=== PATIENT | female | born 1940 | race Caucasian/White ===

== ENCOUNTER 2022-08-23 13:08 | Emergency (ER) | payer MEDICARE, OTHER, SELFPAY ==
[2022-08-23 13:11] VITALS: BP 156/70; PULSE 61; RESP 22; TEMP 36.4; O2SAT 99; BMI 28.3
--- NOTE | 2022-08-23 13:16 | ECG_ITS ---
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 Measurements Intervals [place] Rate: 62 P: 78 ND: 160 QRS: 9 QRSD: 80 T: 47 QT: 402 QTc: 410 Interpretive Statements SINUS RHYTHM POSSIBLE SEPTAL MYOCARDIAL INFARCTION , PROBABLY OLD [30 ms Q WAVE IN V1/V2] No previous ECG available for comparison Electronically Signed On 08-23-2022 22:04:23 PATIENT CARE PROVIDER by Nate Mays M.D. [email or web address] Networkparkwood [email or web address]/store/OM/[id number]
--- NOTE | 2022-08-23 13:18 | ED_ITS ---
HPI - Chest Pain General: Chief Complaint: Chest Pain Stated Complaint: CP Time Seen by Provider: 08/23/22 13:09 History of Present Illness: Ms. Camacho is a 81-year-old lady with history of hypertension and hyperlipidemia presenting to the emergency department for episode of chest discomfort. She reports being at her baseline health and was eating when she got a sharp pain just under her substernal region with radiation through the back. Intensity symptoms when present was moderate. She noted generalized malaise and perhaps nausea with it however symptoms resolved with nitro x2. Reports 1 episode perhaps 1 year ago however denies frequent episodes. No other specific changes in health, exacerbating, or alleviating factors identified. Onset (ago): minute(s) Timing of current episode: now resolved Prior episodes: Yes Onset: during rest Pain location: substernal Pain radiation: back Severity: moderate Quality: aching Relieving factors: nitroglycerin Exacerbating factors: nothing Associated symptoms: Reports nausea and other Review of Systems General: Reports: 10 or more systems reviewed and unremarkable except in HPI and below GI: Reports: nausea PFSH ED PFSH: Medical History (Updated 08/31/22 @ 00:00 by NIKA Davis) Dementia Hyperlipidemia Hypertension Surgical History (Updated 08/23/22 @ 13:49 by Earl Medrano MD) No significant past surgical history Physical Exam Const: COMMON NORMALS: alert GENERAL APPEARANCE: cooperative and well developed HENMT: COMMON NORMALS: normocephalic and atraumatic HEAD & SCALP: normocephalic and atraumatic Eye: COMMON NORMALS: conjunctivae normal CONJUNCTIVA: Yes conjunctivae n ormal SCLERA: sclerae normal Neck/C-Spine: COMMON NORMALS: supple GENERAL: Yes trachea midline Resp: COMMON NORMALS: clear to auscultation bilaterally EFFORT & INSPECTION: Yes able to speak in complete sentences AUSCULTATION: clear to auscultation bilaterally Cardio: COMMON NORMALS: regular rate and regular rhythm RATE: regular rate RHYTHM: regular rhythm GI: COMMON NORMALS: Soft to palpation PALPATION: Yes Soft to palpation, No Tenderness to palpation present (GI) (Epigastric), No Guarding due to palpation present (GI) and No Rigid due to palpation PERCUSSION: normal to percussion Extremity: GENERAL: Yes normal exam except as noted and No edema Neuro: COMMON NORMALS: moves all extremities SENSORIUM/ORIENTATION: Yes alert and No Orientation impaired Psych: COMMON NORMALS: mental status grossly normal and Normal thought process present THOUGHT PROCESS: Normal thought process present Course Vital Signs: Vital signs: Vital Signs Temperature 97.5 F L 08/23/22 13:11 Pulse Rate 74 08/23/22 17:36 Respiratory Rate 18 08/23/22 17:36 Blood Pressure 132/66 08/23/22 17:36 Pulse Oximetry 99 08/23/22 17:36 Oxygen Delivery Me thod 08/23/22 13:11 MDM - Chest Pain Medical Decision Making 81-year-old lady presenting with sharp substernal chest pain with radiation to the back and improvement with nitroglycerin. Exam as above. Patient is nontoxic EKG with sinus rhythm, normal axis and intervals, no STEMI. Similar on repeat Labs with no significant leukocytosis, no alteration in hemoglobin or platelet count. Metabolic panel without significant electrolyte derangement. Minimal elevation in AST and lipase is elevated. Negative range 2-hour delta troponin Chest x-ray with left lung haziness, no lobar consolidation or pneumothorax. CT demonstrates distal esophageal and gastroesophageal thickening and small fluid consistent with reflux in the esophagus. The gallbladder has been removed and no comment on biliary ductal dilation however clinically patient is not tender in the right upper quadrant or epigastric region. Patient treated with aspirin and symptoms are improved. The exact etiology of patient's symptoms is unclear may be related to esophagiti s or pancreatitis though patient clinically does not meet criteria for pancreatitis. I discussed other possible etiologies. Patient wishes for outpatient management The results of ED evaluation were discussed with the patient including possible disposition options. I discussed risk stratification by heart score and estimated risk of major adverse cardiac events. The patient wishes to proceed with outpatient management. I discussed prescriptions and/or symptomatic cares (if applicable) including appropriate and responsible use, followup plan, and return precautions. The patient verbalized understanding and felt safe for discharge. Medical Records I reviewed the patient's medical records. Lab Data I reviewed the patient's lab results. 08/23/22 13:38 08/23/22 13:38 Radiology Impressions Chest X-Ray 08/23/22 13:34 IMPRESSION: There are hazy opacities at the left lung base. Differential includes atelectasis, scar tissue, and or pneumonia. Abdomen/Pelvis CT 08/23/22 14:29 IMPRESSION: 1. There is mucosal thickening of the distal esophagus and gastroesophageal junction. Differential includes nonspecific esophagitis/gastritis. Follow-up to exclude neoplasm as clinically warranted. 2. Small amount of fluid in the distal esophagus consistent with difficulty swallowing and/or reflux. Small hiatal hernia. COMMENTS: Consistent with the [employer]'s Incidental Findings Committee white paper (J Am Lucrecia Radiol 2018): Any incidental renal lesion less than 1 cm or classified as too small to characterize, or any incidental cystic renal lesion characterized as simple-appearing, is likely benign. No follow-up imaging is recommended for these lesions per consensus recommendations based on imaging criteria. Laboratory Results WBC 6.1 10^3/uL (4.0-10.0) 08/23/22 13:38 RBC 4.05 10^6/uL (4.1-5.3) L 08/23/22 13:38 Hgb 12.6 g/dL (11.5-15.3) 08/23/22 13:38 Hct 39.1 % (37.0-47.0) 08/23/22 13:38 MCV 96.5 fl (81-99) 08/23/22 13:38 MCH 31.1 pg (28.0-34.0) 08/23/22 13:38 MCHC 32.2 g/dL (30.0-36.0) 08/23/22 13:38 RDW 13.2 % (12.1-15.1) 08/23/22 13:38 Plt Count 158 10^3/cmm (130-400) 08/23/22 13:38 MPV 11.6 fL (7.4-10.4) H 08/23/22 13:38 Neut % (Auto) 61.6 % 08/23/22 13:38 Lymph % (Auto) 17.3 % 08/23/22 13:38 [place] % (Auto) 5.9 % 08/23/22 13:38 Eos % (Auto) 13.8 % 08/23/22 13:38 Baso % (Auto) 1.1 % 08/23/22 13:38 Neut # (Auto) 3.78 10^3/uL (1.8-7.7) 08/23/22 13:38 Lymph # (Auto) 1.1 10^3/uL (0.8-4.8) 08/23/22 13:38 [place] # (Auto) 0.4 10^3/uL (0.2-0.9) 08/23/22 13:38 Eos # (Auto) 0.9 10^3/uL (0.0-0.8) H 08/23/22 13:38 Baso # (Auto) 0.1 10^3/uL (0.0-0.1) 08/23/22 13:38 Nucleated RBC % (auto) 0 % 08/23/22 13:38 Nucleated RBCs # 0.0 /100WBC 08/23/22 13:38 Sodium 137 mmol/L (136-145) 08/23/22 13:38 Potassium 4.0 mmol/L (3.5-5.1) 08/23/22 13:38 Chloride 102 mmol/L (98-107) 08/23/22 13:38 Carbon Dioxide 25 mmol/L (22-29) 08/23/22 13:38 Anion Gap 14.0 (5-19) 08/23/22 13:38 BUN 11 mg/dL (8-23) 08/23/22 13:38 Creatinine 0.9 mg/dL (0.5-0.9) 08/23/22 13:38 GFR Calculation Not Reportable 08/23/22 13:38 Glucose 113 mg/dL (65-115) 08/23/22 13:38 Calculated Osmolality 284 mOsm/kg (285-295) L 08/23/22 13:38 Calcium 9.7 mg/dL (8.5-10.5) 08/23/22 13:38 Total Bilirubin 0.2 mg/dL (0.15-1.2) 08/23/22 13:38 AST 54 U/L (0-32) H 08/23/22 13:38 ALT 26 U/L (0-33) 08/23/22 13:38 Alkaline Phosphatase 75 U/L (35-105) 08/23/22 13:38 Troponin T Baseline 15 ng/L (0-10) H 08/23/22 13:38 Troponin T 120 Minute 13.73 ng/L (0-10) H 08/23/22 15:53 Delta Troponin T -1.27 ABS# (0-10) L 08/23/22 15:53 NT-Pro-B Natriuret Pep 380 pg/mL (0-450) 08/23/22 13:38 Total Protein 6.2 g/dL (6.6-8.7) L 08/23/22 13:38 Albumin 4.1 g/dL (3.5-5.2) 08/23/22 13:38 Globulin 2.1 g/dL (1.3-4.6) 08/23/22 13:38 Lipase 2602 U/L (13-60) H 08/23/22 13:38 Discharge Plan Discharge Patient Disposition: Home Clinical Impression: Chest pain, Esophagitis, Gastritis, Elevated lipase Condition: Stable Prescriptions: New Protonix 40 mg tablet,delayed release (DR/EC) 40 mg PO Q12H 14 Days Qty: 28 0RF sucralfate 1 gram tablet 1 g PO TID 14 Days Qty: 42 0RF ondansetron 4 mg tablet,disintegrating 4 mg PO Q8H PRN (Reason: nausea and vomiting) Qty: 15 0RF oxycodone 5 mg tablet 5 mg PO Q4H PRN (Reason: pain) Qty: 10 0RF No Action buspirone 5 mg tablet 5 mg PO BEDTIME Tylenol 325 mg Tablet 325 mg PO BID donepezil 5 mg tablet 5 mg PO QAM Miralax 17 gram Powder In Packet 17 g PO BEDTIME atenolol 25 mg tablet 25 mg PO QAM clobetasol 0.05 % cream 1 applic TOPICAL BID PRN (Reason: unknown) Aspir-81 81 mg Tablet,Delayed Release (Dr/Ec) 81 mg PO BEDTIME levothyroxine 50 mcg tablet 50 mcg PO QAM ezetimibe 10 mg tablet 10 mg PO BEDTIME Metamucil (sugar) Powder 2 tsp PO QAM Mxkt-Zaun-Dcseca Oil [phone] mg Capsule 1 cap PO DAILY Centrum Silver Women 8 mg iron-400 mcg-300 mcg Tablet 1 tab PO DAILY Discharge Orders: Discharge ED (Routine); Ordered 08/23/22 Ordered By: Earl Medrano Discharge Diet: Advance as tolerated and Clear Liquid Discharge Activity: Increase activity as tolerated Patient Instructions: Chest Pain (ED), Gastritis (ED), Pancreatitis (ED), Diet for Stomach Ulcers and Gastritis (ED), Opioid Safety Activity Restrictions/Additional Instructions: Thank you for visiting the emergency department. You were seen and evaluated for episode of chest pain. The most likely cause of your symptoms is related to esophagitis/gastritis and possibly pancreatitis. We are pleased that your pain is improved. I will prescribe medication for treatment. Please follow-up with your primary care provider. Return to the emergency department for anything that you are concerned about and field needs emergency department evaluation. Coding Level of Care Code ED Sprayer Automatic Spray Machine for Vitaliy Chi
--- NOTE | 2022-08-23 13:34 | XRR_ITS ---
PROCEDURE INFORMATION: Exam: XR Chest Exam date and time: 08/23/2022 1:54 PM Age: 81 years old Clinical indication: Pain; Other: Generalized cp TECHNIQUE: Imaging protocol: Radiologic exam of the chest. Views: 1 view. COMPARISON: No relevant prior studies available. FINDINGS: Lungs: Hazy opacities are present at the left lung base. Pleural spaces: Costophrenic angles are not well seen and small pleural effusions cannot be excluded. Heart/Mediastinum: Unremarkable. No cardiomegaly. Vasculature: There is calcified plaque in the aortic knob. Bones/joints: Unremarkable. XR/XR chest 1V portable [id number] IMPRESSION: There are hazy opacities at the left lung base. Differential includes atelectasis, scar tissue, and or pneumonia.
[2022-08-23] MEDS: aspirin 81 mg Chew Tablet 324 MG PO (13:44)
[2022-08-23 13:45] LABS: Basophils # 0.1 10^3/uL (0.0-0.1); Basophils % 1.1 %; Eosinophils # 0.9 10^3/uL (0.0-0.8); Eosinophils % 13.8 %; Hematocrit 39.1 % (37.0-47.0); Hemoglobin 12.6 g/dL (11.5-15.3); Lymphocytes # 1.1 10^3/uL (0.8-4.8); Lymphocytes % 17.3 %; Mean Corpuscular HGB Conc 32.2 g/dL (30.0-36.0); Mean Corpuscular Hemoglobin 31.1 pg (28.0-34.0); Mean Corpuscular Volume 96.5 fl (81-99); Mean Platelet Volume 11.6 fL (7.4-10.4); Monocytes # 0.4 10^3/uL (0.2-0.9); Monocytes % 5.9 %; Neutrophils # 3.78 10^3/uL (1.8-7.7); Neutrophils % 61.6 %; Nucleated Red Blood Cells % 0 %; Platelet Count 158 10^3/cmm (130-400); Red Blood Count 4.05 10^6/uL (4.1-5.3); Red Cell Distribution Width 13.2 % (12.1-15.1); White Blood Count 6.1 10^3/uL (4.0-10.0)
[2022-08-23 14:13] LABS: Troponin(5th) Baseline 15 ng/L (0-10)
[2022-08-23 14:18] LABS: Alanine Aminotransferase 26 U/L (0-33); Albumin Level 4.1 g/dL (3.5-5.2); Alkaline Phosphatase 75 U/L (35-105); Aspartate Amino Transferase 54 U/L (0-32); Blood Urea Nitrogen 11 mg/dL (8-23); Calcium 9.7 mg/dL (8.5-10.5); Carbon Dioxide 25 mmol/L (22-29); Chloride 102 mmol/L (98-107); Globulin 2.1 g/dL (1.3-4.6); Glucose 113 mg/dL (65-115); NT Pro B Type Natriuretic Pept 380 pg/mL (0-450); Osmolality Calculated 284 mOsm/kg (285-295); Sodium 137 mmol/L (136-145); Total Bilirubin 0.2 mg/dL (0.15-1.2); Total Protein 6.2 g/dL (6.6-8.7)
[2022-08-23 14:28] LABS: Lipase 2602 U/L (13-60)
--- NOTE | 2022-08-23 14:29 | CTR_ITS ---
PROCEDURE INFORMATION: Exam: CT Abdomen And Pelvis With Contrast Exam date and time: 08/23/2022 2:42 PM Age: 81 years old Clinical indication: Abdominal pain; Epigastric; Prior surgery; Surgery type: Gb; Additional info: Chest pain, elevated lipase TECHNIQUE: Imaging protocol: Computed tomography of the abdomen and pelvis with contrast. Radiation optimization: All CT scans at this facility use at least one of these dose optimization techniques: automated exposure control; mA and/or kV adjustment per patient size (includes targeted exams where dose is matched to clinical indication); or iterative reconstruction. Contrast material: OMNI 350; Contrast volume: 100 ml; Contrast route: INTRAVENOUS (IV); Other protocol: This patient has received 0 known CTs and 0 known cardiac nuclear medicine studies in the 12 months prior to the current study. COMPARISON: CR (CHEST, ) 08/23/2022 1:54 PM RADIATION DOSE METRICS: Total DLP (mGy-cm): 599.54 FINDINGS: Mediastinal space: There is mucosal thickening of the distal esophagus and gastroesophageal junction. There is a small amount fluid in the distal esophagus. Diaphragm: Small hiatal hernia. Liver: Incidental splenic and hepatic calcified granulomata. Gallbladder and bile ducts: The gallbladder has been removed. Pancreas: Normal. No ductal dilation. Spleen: Normal. No splenomegaly. Adrenal glands: Normal. No mass. Kidneys and ureters: Three 9 cm cyst in the left kidney is benign features. Follow-up is not necessary. Stomach and bowel: There is diverticulosis of the colon without evidence of diverticulitis. Appendix: A normal appendix is identified. Intraperitoneal space: Unremarkable. No free air. No significant fluid collection. Vasculature: Unremarkable. No abdominal aortic aneurysm. Lymph nodes: Unremarkable. No enlarged lymph nodes. Urinary bladder: Unremarkable as visualized. Reproductive: Unremarkable as visualized. Bones/joints: There are degenerative changes in the visualized spine. Grade 1 degenerative retrolisthesis of L2 on L3, L3 on L4, and L4 on L5. Multilevel lumbar broad-based disc osteophyte complexes contribute to bilateral neural foraminal narrowing. Mild lateral curvature of the lower thoracic/upper lumbar spine with the convexity to the left. Soft tissues: Unremarkable. CT/CT abdomen pelvis w con* [id number] IMPRESSION: 1. There is mucosal thickening of the distal esophagus and gastroesophageal junction. Differential includes nonspecific esophagitis/gastritis. Follow-up to exclude neoplasm as clinically warranted. 2. Small amount of fluid in the distal esophagus consistent with difficulty swallowing and/or reflux. Small hiatal hernia. COMMENTS: Consistent with the [place] [employer]'s Incidental Findings Committee white paper (J Am Lucrecia Radiol 2018): Any incidental renal lesion less than 1 cm or classified as too small to characterize, or any incidental cystic renal lesion characterized as simple-appearing, is likely benign. No follow-up imaging is recommended for these lesions per consensus recommendations based on imaging criteria.
[2022-08-23] MEDS: iohexol 350 mg/mL 500 mL Btl (per mL) IV (14:47)
--- NOTE | 2022-08-23 15:46 | ECG_ITS ---
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 Measurements Intervals [place] Rate: 66 P: 74 NV: 172 QRS: -2 QRSD: 89 T: 42 QT: 399 QTc: 418 Interpretive Statements SINUS RHYTHM POSSIBLE RIGHT VENTRICULAR CONDUCTION DELAY [RSR (QR) IN V1/V2] PROBABLE SEPTAL MYOCARDIAL INFARCTION , PROBABLY OLD [35 ms Q WAVE IN V1/V2] Compared to ECG 08/23/2022 13:19:57 No significant changes Electronically Signed On 08-23-2022 22:21:11 NET MANAGER by Nate Mays M.D. [email or web address].[id number]
[2022-08-23 16:08] VITALS: BP 122/66; RESP 18; O2SAT 96
[2022-08-23 16:27] LABS: Troponin 5 2HR 13.73 ng/L (0-10)
[2022-08-23 16:29] LABS: Troponin 5 2HR Delta -1.27 ABS# (0-10)
[2022-08-23 17:36] VITALS: BP 132/66; PULSE 74; RESP 18; O2SAT 99
== END 2022-08-23 17:37 | disposition home or self-care (01) ==
PROVIDERS: Emergency Provider Emergency Medicine
DX: R07.9 Chest pain, unspecified (principal); K20.90 Esophagitis, unspecified without bleeding; K29.70 Gastritis, unspecified, without bleeding; R74.8 Abnormal levels of other serum enzymes; Z79.82 Long term (current) use of aspirin; F03.90 Unspecified dementia, unspecified severity, without behavioral disturbance, psychotic disturbance, mood disturbance, and anxiety; E78.5 Hyperlipidemia, unspecified; I10 Essential (primary) hypertension
CPT/HCPCS: 36415; 71045; 74177; 80053; 83690; 83880; 84484; 85025; 93005; 99285; Q9967

== ENCOUNTER 2023-03-24 17:34 | Inpatient (IN) | payer MEDICARE, OTHER, SELFPAY ==
[2023-03-24 17:42] VITALS: BP 153/84; PULSE 61; RESP 22; TEMP 36.4; O2SAT 98; BMI 30.1
[2023-03-24 18:13] VITALS: O2SAT 98
--- NOTE | 2023-03-24 18:33 | XRR_ITS ---
PROCEDURE INFORMATION: Exam: XR Pelvis Exam date and time: 03/24/2023 6:39 PM Age: 82 years old Clinical indication: Injury or trauma; Fall; Additional info: Left hip pain/fall TECHNIQUE: Imaging protocol: Radiologic exam of the pelvis. Views: 1 or 2 view. COMPARISON: CT abdomen pelvis w con* [id number] 08/23/2022 2:42 PM FINDINGS: Bones/joints: Transverse lucency in the left pubic symphysis. The bones otherwise appear intact. Leftward lumbar curvature. Soft tissues: Unremarkable. XR/XR pelvis 1-2V* [id number] IMPRESSION: Transverse lucency in the left pubic symphysis could represent a fracture.
--- NOTE | 2023-03-24 18:33 | XRR_ITS ---
PROCEDURE INFORMATION: Exam: XR Left Elbow Exam date and time: 03/24/2023 6:39 PM Age: 82 years old Clinical indication: Pain; Elbow; Left; Additional info: Trauma, fell on concrete, lt elbow pain, laceration TECHNIQUE: Imaging protocol: Radiologic exam of the left elbow. Views: 3 or more views. COMPARISON: No relevant prior studies available. FINDINGS: Bones/joints: The bones are intact and in normal position. No visible fracture. No visible elbow effusion. Soft tissues: Soft tissue swelling in the posterior elbow and proximal forearm. Posterior bandage and/or ice pack in place. XR/XR elbow LT min 3V* [id number] IMPRESSION: No fracture visualized.
--- NOTE | 2023-03-24 18:33 | XRR_ITS ---
PROCEDURE INFORMATION: Exam: XR Left Femur Exam date and time: 03/24/2023 6:39 PM Age: 82 years old Clinical indication: Pain; Thigh; Left; Additional info: Trauma, fell on concrete, left femur pain TECHNIQUE: Imaging protocol: Radiologic exam of the left femur. Views: 2 views. COMPARISON: CT abdomen pelvis w con* [id number] 08/23/2022 2:42 PM FINDINGS: Bones/joints: The bones are intact. No fracture. No knee effusion. Joint space narrowing and degenerative changes of the medial knee compartment. Soft tissues: Unremarkable. Arterial calcifications. XR/XR femur LT min 2V* [id number] IMPRESSION: No acute findings.
--- NOTE | 2023-03-24 18:35 | W.ED.FALL ---
HPI - Fall General: Chief Complaint: Fall Stated Complaint: fall, left arm injury Time Seen by Provider: 03/24/23 18:01 History of Present Illness: 82-year-old female presents to the emergency department complaining of mechanical fall. She has dementia and her and daughter are here as independent historians. She was coming out onto their driveway through the garage. A neighbor had just arrived. She had forgotten or else did not account for the approximately 3 inch step down going from the slab of concrete in the garage to the driveway. She fell onto her left side. She has a contusion on the left knee, pain in the left hip, and a large laceration to the left elbow. She can flex and extend her elbow but it causes her some pain. She says she feels like she cannot raise her left leg due to a vague discomfort somewhere around the left hip section. She denies hitting her head. No neck pain. It was a witnessed fall. Review of Systems General: Reports: 10 or more systems reviewed and unremarkable except in HPI and below PFSH ED PFSH: Medical History (Updated 03/24/23 @ 20:48 by Amrit Rich MD) Dementia Hyperlipidemia Hypertension Surgical History (Updated 08/23/22 @ 13:49 by Earl Medrano MD) No significant past surgical history Physical Exam Const: COMMON NORMALS: alert and well nourished EXAM LIMITATIONS: no altered mental status HENMT: COMMON NORMALS: normocephalic, atraumatic and external ears normal HEAD & SCALP: normocephalic and atraumatic EXTERNAL EAR: Yes external ears normal MOUTH: no muffled voice Eye: COMMON NORMALS: EOMs intact bilaterally, conjunctivae normal and no scleral icterus CONJUNCTIVA: Yes conjunctivae normal Neck/C-Spine: COMMON NORMALS: no JVD GENERAL: Yes normal visual inspection and Yes trachea midline Chest: OTHER: Nontender chest wall, nontender clavicles, no crepitus or deformities Resp: COMMON NORMALS: normal respiratory effort, No use of accessory muscles and clear to auscultation bilaterally AUSCULTATION: clear to auscultation bilaterally Cardio: COMMON NORMALS: no JVD, regular rate and regular rhythm RATE: regular rate RHYTHM: regular rhythm GI: COMMON NORMALS: Soft to palpation and non-tender PALPATION: Yes Soft to palpation and No Guarding due to palpation present (GI) Back/Pelvis: OTHER: Cervical, thoracic, lumbar spine all nontender. Normal range of motion. Extremity: NARRATIVE EXTREMITY EXAM: All of the extremities were examined. There is a contusion on the left knee. Otherwise no's skin changes in the left lower extremity. There is pain with active or passive range of motion of the left lower extremity. Pain is poorly localized but somewhere in the left hip. Pelvis is stable to AP pressure. Right lower extremity examination unremarkable Right upper extremity examination unremarkable. Left upper extremity examination reveals laceration and skin tear of the left elbow. She has some pain with range of motion but believes it is due to the lacerations. No pain with range of motion of the shoulder. Mild pain in the left wrist but no limitation in range of motion and no guarding. No bony tenderness throughout the hand or wrist. Humerus is nontender. Neuro: COMMON NORMALS: moves all extremities, no focal motor deficits and no sensory deficits noted SENSORIUM/ORIENTATION: Yes alert SPEECH: speech normal Psych: COMMON NORMALS: Normal thought process present, cooperative, normal affect and speech normal SPEECH: Yes normal speech THOUGHT PROCESS: Normal thought process present Procedures Laceration Laceration 1: Site: upper extremity (Left elbow) Side (If applicable): left Size (cm): 5 Description: linear Depth: simple, single layer Local Anesthetic: lidocaine 1% and with epi Amount of anesthesia used (mL): 10 Pre-repair: wound explored, irrigated extensively and deep structures intact Skin layer closed with: nylon Size (cm): 3-0 Number of sutures: 9 Technique: running Course Vital Signs: Vital signs: Vital Signs Temperature 97.5 F L 03/24/23 17:42 Pulse Rate 61 03/24/23 17:42 Respiratory Rate 18 03/24/23 19:11 Blood Pressure 153/84 03/24/23 17:42 Pulse Oximetry 98 03/24/23 18:13 Oxygen Delivery Me thod Room Air 03/24/23 18:13 MDM - Fall Medical Decision Making 1. Laceration and skin tear to left elbow. Tetanus needs updated. X-rays are pending. 2. Left hip pain after fall. X-ray of the pelvis and femur are pending. Update The patient's left elbow x-rays were reviewed. There is no true 90 degree elbow film. However, I do not see any fractures. I also reviewed the patient's femur and pelvis x-rays. There is a superior pubic ramus fracture near the pubic symphysis on the left side. No other fractures visualized I repaired the patient's left elbow skin tear as well as her laceration. We attempted ambulation with a walker after she was given hydrocodone. Patient was only able to make it a few steps and needed help and had significant pain and had to return to bed. Family does not feel they will be able to care for her appropriately at home, will reach out for admission to the hospital. She will probably need care home/rehabilitation placement Lab Data 03/24/23 20:57 03/24/23 20:57 Radiology Impressions Elbow X-Ray 03/24/23 18:33 IMPRESSION: No fracture visualized. Femur X-Ray 03/24/23 18:33 IMPRESSION: No acute findings. Pelvis X-Ray 03/24/23 18:33 IMPRESSION: Transverse lucency in the left pubic symphysis could represent a fracture. Laboratory Results WBC 13.61 10^3/uL (3.29-11.43) H 03/24/23 20:57 RBC 3.93 10^6/uL (3.85-5.65) 03/24/23 20:57 Hgb 12.30 g/dL (11.27-16.99) 03/24/23 20:57 Hct 38.2 % (36-47) 03/24/23 20:57 MCV 97.2 fl (85-98) 03/24/23 20:57 MCH 31.3 pg (27-33) 03/24/23 20:57 MCHC 32.2 g/dL (30-55) 03/24/23 20:57 RDW 13.1 % (12.1-15.1) 03/24/23 20:57 Plt Count 152 10^3/cmm (157-399) L 03/24/23 20:57 MPV 11.7 fL (7.4-10.4) H 03/24/23 20:57 Neut % (Auto) 82.3 % 03/24/23 20:57 Lymph % (Auto) 8.6 % 03/24/23 20:57 [place] % (Auto) 5.9 % 03/24/23 20:57 Eos % (Auto) 1.5 % 03/24/23 20:57 Baso % (Auto) 0.4 % 03/24/23 20:57 Neut # (Auto) 11.20 10^3/uL (1.8-7.7) H 03/24/23 20:57 Lymph # (Auto) 1.2 10^3/uL (0.8-4.8) 03/24/23 20:57 [place] # (Auto) 0.8 10^3/uL (0.2-0.9) 03/24/23 20:57 Eos # (Auto) 0.2 10^3/uL (0.0-0.8) 03/24/23 20:57 Baso # (Auto) 0.1 10^3/uL (0.0-0.1) 03/24/23 20:57 Nucleated RBC % (auto) 0 % 03/24/23 20:57 Nucleated RBCs # 0.0 /100WBC 03/24/23 20:57 All radiology interpretation(s) finalized by discharge ED provider radiology interpretation(s): See MDM Discharge Plan Discharge Patient Disposition: Placed in Observation Clinical Impression: Fracture of left superior pubic ramus, Dementia, Laceration of elbow, left, Contusion of knee, left, Gait disturbance Coding Level of Care Code ED Eye Glass Frame Polisher for Vitaliy Chi
[2023-03-24] MEDS: ondansetron 4 MG Tablet PO (19:09)
[2023-03-24] MEDS: tetanus-dipt-pertussis 0.5 mL SDV IM (19:10)
[2023-03-24] MEDS: HYDROcodone-acetaminophen 5-325 mg Tablet 1 TAB PO ×2 (19:10→22:52)
[2023-03-24 19:11] VITALS: RESP 18
[2023-03-24] MEDS: lidocaine-epi 1% 20 mL INJ INJECTION (20:39)
[2023-03-24 21:17] LABS: Basophils # 0.1 10^3/uL (0.0-0.1); Basophils % 0.4 %; Eosinophils # 0.2 10^3/uL (0.0-0.8); Eosinophils % 1.5 %; Hematocrit 38.2 % (36-47); Lymphocytes # 1.2 10^3/uL (0.8-4.8); Lymphocytes % 8.6 %; Mean Corpuscular HGB Conc 32.2 g/dL (30-55); Mean Corpuscular Hemoglobin 31.3 pg (27-33); Mean Corpuscular Volume 97.2 fl (85-98); Mean Platelet Volume 11.7 fL (7.4-10.4); Monocytes # 0.8 10^3/uL (0.2-0.9); Monocytes % 5.9 %; Neutrophils % 82.3 %; Nucleated Red Blood Cells % 0 %; Platelet Count 152 10^3/cmm (157-399); Red Blood Count 3.93 10^6/uL (3.85-5.65); Red Cell Distribution Width 13.1 % (12.1-15.1); White Blood Count 13.61 10^3/uL (3.29-11.43)
[2023-03-24 21:26] LABS: Alanine Aminotransferase 23 U/L (0-33); Albumin Level 4.3 g/dL (3.5-5.2); Alkaline Phosphatase 75 U/L (35-105); Anion Gap 15.3 (5-19); Aspartate Amino Transferase 45 U/L (0-32); Blood Urea Nitrogen 19 mg/dL (8-23); Calcium 9.3 mg/dL (8.5-10.5); Carbon Dioxide 23 mmol/L (22-29); Chloride 104 mmol/L (98-107); Globulin 2.5 g/dL (1.3-4.6); Glucose 139 mg/dL (65-115); Osmolality Calculated 291 mOsm/kg (285-295); Potassium 4.3 mmol/L (3.5-5.1); Sodium 138 mmol/L (136-145); Total Bilirubin 0.3 mg/dL (0.15-1.2); Total Protein 6.8 g/dL (6.6-8.7)
[2023-03-24 22:46] VITALS: BP 120/66; PULSE 58; PULSE 64; RESP 15; TEMP 36.8; O2SAT 97
--- NOTE | 2023-03-24 22:52 | PM.HP ---
Providers/Chief Complaint Admitting Physician: Cecilia Ness MD Primary Care Provider: JOVITA LOBO Chief Complaint: fall, left arm injury History of Present Illness Isabelle Camacho is a 82 year old female with a history of dementia sustained a mechanical fall at home earlier today. Per family, patient was going out of her house to meet with one of the neighbors when she missed a step and fell onto hard ground. She is having difficulty walking ever since then. She suffered a laceration over her left arm. She is currently complaining of pain over the left hand. No history of chest pain dyspnea palpitations syncope. Patient has not been sick recently, in her baseline state of health. Review of Systems General: Reports: 10 or more systems reviewed and unremarkable except in HPI and below Const: Denies: fever(s), chills or body aches Eyes: Denies: change in vision, blurry vision or photophobia ENMT: Reports: hoarseness; Denies: throat pain, enlarged tonsils, odynophagia or nasal congestion Card: Denies: chest pain, palpitations, irregular heart rhythm, edema, swelling of feet/ankles, lightheadedness, pre-syncope, dyspnea on exertion or orthopnea Resp: Denies: dyspnea, productive cough, non-productive cough, wheezing, stridor, pain on inspiration, change in phlegm color, hemoptysis or chest congestion GI: Denies: abdominal pain, nausea, vomiting, hematemesis, coffee ground emesis, dysphagia, heartburn, diarrhea, constipation, GI cramping, change in stool character, hematochezia or melena : Denies: flank pain, difficulty voiding, dysuria, urinary frequency, urinary urgency, urinary hesitancy or hematuria Musc: Denies: neck pain, back pain, extremity pain, joint swelling, joint warmth or deformity Neuro: Denies: headache(s), numbness in extremities, weakness in extremities, sensory changes, difficulty walking, frequent falls, dizziness, vertigo, behavioral changes, Slurred speech present or seizure-like activity Psych: Denies: anxiety, depression, suicidal ideation or homicidal ideation Endo: Denies: polyuria, polydipsia, tired all the time, cold intolerance or hot flashes Thierry/Lymph: Denies: easy bruising or easy bleeding Medications/Allergies Home Medications Medication Instructions Recorded Confirmed Last Taken Type aspirin 81 mg tablet,delayed 81 mg PO BEDTIME 08/23/22 03/24/23 03/23/23 20:00 History release buspirone 5 mg tablet 5 mg PO BEDTIME PRN Anxiety 08/23/22 03/24/23 03/23/23 20:00 History ezetimibe 10 mg tablet 10 mg PO BEDTIME 08/23/22 03/24/23 03/23/23 20:00 History levothyroxine 50 mcg tablet 50 mcg PO QAM 08/23/22 03/24/23 03/24/23 08:00 History polyethylene glycol 3350 17 gram 8 g PO BEDTIME 08/23/22 03/24/23 08/22/22 History oral powder packet (Miralax) psyllium seed (sugar) oral powder 2 tsp PO QAM 08/23/22 03/24/23 Unknown History (Metamucil (sugar) oral powder) donepezil 5 mg tablet 5 mg PO DAILY 03/24/23 03/24/23 03/24/23 08:00 History sulfamethoxazole 800 1 tab PO Q12H 03/24/23 03/24/23 Unknown History mg-trimethoprim 160 mg tablet (Bactrim DS) Allergies Allergy/AdvReac Type Severity Reaction Status Date / Time ciprofloxacin [From Cipro] Allergy Unknown Verified 08/23/22 14:01 PFSH Acute PFSH: Medical History Dementia Hyperlipidemia Hypertension Surgical History No significant past surgical history Vitals/I&O/Wt Last Vital Signs Temp 97.5 F L 03/24/23 17:42 Pulse 61 03/24/23 17:42 Resp 18 03/24/23 19:11 BP 153/84 03/24/23 17:42 Pulse Ox 98 03/24/23 18:13 O2 Del Method Room Air 03/24/23 18:13 Weight last 48 hrs Weight 77.111 kg Physical Exam Narrative: General: No acute distress, AO x2-3 HEENT: PERRLA, pupils bilaterally equal and reactive, pallors not present Chest: Normal vesicular breath sounds, no added sounds, equal good air entry bilaterally CVS: S1-S2 regular, no murmurs, no tachycardia, no gallops, no rubs Abdomen: Soft, nontender, no organomegaly, bowel sounds present Neuro: No focal deficits, no facial deformity, AO x2-3 power 5/5 in all limbs Data 03/25/23 04:04 03/25/23 04:04 Other [facility]: [facility] [address] [place] [address] XRay Report Signed Patient: Isabelle Camacho Unit #: [id number] : 1940 Age/Sex: 82 / F ADM Date: 03/24/23 Loc: ER Room/Bed: Attending Dr: Ordering Provider/Ordering MD: Amrit Rich MD Date of Service: 03/24/23 Procedure(s): XR pelvis 1-2V* [id number] Accession Number(s): [id number] Report Number: [id number] PROCEDURE INFORMATION: Exam: XR Pelvis Exam date and time: 03/24/2023 6:39 PM Age: 82 years old Clinical indication: Injury or trauma; Fall; Additional info: Left hip pain/fall TECHNIQUE: Imaging protocol: Radiologic exam of the pelvis. Views: 1 or 2 view. COMPARISON: CT abdomen pelvis w con* [id number] 08/23/2022 2:42 PM FINDINGS: Bones/joints: Transverse lucency in the left pubic symphysis. The bones otherwise appear intact. Leftward lumbar curvature. Soft tissues: Unremarkable. XR/XR pelvis 1-2V* [id number] IMPRESSION: Transverse lucency in the left pubic symphysis [place] [address] XRay Report Signed Patient: Isabelle Camacho Unit #: [id number] : 1940 Age/Sex: 82 / F ADM Date: 03/24/23 Loc: ER Room/Bed: Attending Dr: Ordering Provider/Ordering MD: Amrit Rich MD Date of Service: 03/24/23 Procedure(s): XR femur LT min 2V* [id number] Accession Number(s): [id number] Report Number: [id number] PROCEDURE INFORMATION: Exam: XR Left Femur Exam date and time: 03/24/2023 6:39 PM Age: 82 years old Clinical indication: Pain; Thigh; Left; Additional info: Trauma, fell on concrete, left femur pain TECHNIQUE: Imaging protocol: Radiologic exam of the left femur. Views: 2 views. COMPARISON: CT abdomen pelvis w con* [id number] 08/23/2022 2:42 PM FINDINGS: Bones/joints: The bones are intact. No fracture. No knee effusion. Joint space narrowing and degenerative changes of the medial knee compartment. Soft tissues: Unremarkable.? Arterial calcifications. XR/XR femur LT min 2V* [id number] IMPRESSION: No acute findings. [address] [address] XRay Report Signed Patient: Isabelle Camacho Unit #: [id number] : 1940 Age/Sex: 82 / F ADM Date: 03/24/23 Loc: ER Room/Bed: Attending Dr: Ordering Provider/Ordering MD: Amrit Rich MD Date of Service: 03/24/23 Procedure(s): XR elbow LT min 3V* 68356 Accession Number(s): [id number] Report Number: [id number] PROCEDURE INFORMATION: Exam: XR Left Elbow Exam date and time: 03/24/2023 6:39 PM Age: 82 years old Clinical indication: Pain; Elbow; Left; Additional info: Trauma, fell on concrete, lt elbow pain, laceration TECHNIQUE: Imaging protocol: Radiologic exam of the left elbow. Views: 3 or more views. COMPARISON: No relevant prior studies available. FINDINGS: Bones/joints: The bones are intact and in normal position. No visible fracture. No visible elbow effusion. Soft tissues: Soft tissue swelling in the posterior elbow and proximal forearm. Posterior bandage and/or ice pack in place. XR/XR elbow LT min 3V* [id number] IMPRESSION: No fracture visualized. A&P Assessment and plan (1) Fracture of left superior pubic ramus: Fracture of the left pubic symphysis after sustaining a mechanical fall at home today. X-ray shows a transverse lucency thought to represent a fracture. We will repeat CT pelvis to better evaluate Patient attempted to walk in the emergency room but was unable to. Could barely take a few steps, family does not feel they will be able to take care of her needs at home given that she is unable to take even a few steps at this time. Orthopedic consult PT OT assessment As needed hydrocodone APAP for pain management (2) Laceration of elbow, left: Sutured in the emergency room. Approximately 8 cm laceration over the left elbow (3) Dementia: Mentation is currently at baseline Continue home medications (4) Contusion of knee, left: no underlying fractures visualized (5) ASHLI (acute kidney injury): ASHLI, creatinine at 1.4, previous baseline at 0.9. Start IV fluids normal saline at 75 cc an hour May be related to Bactrim use as outpatient for recent UTI. I do not have urine cultures available. Given ASHLI, will use ceftriaxone instead empirically, check UA and urine culture May need to obtain recent outpatient cultures in am Attestations Medical Necessity Statement*: Anticipate greater than 2 midnight admission at this point in time, elderly patient with fall and pubic rami fracture, unable to take even few short steps, will need therapy assessments and likely continued rehab, family states unable to care for her needs at home, will need appropriate disposition planning Coding Level of Care Code Acute Code for [facility] Fwd Diagnoses Fracture of left superior pubic ramus S32.512A Laceration of elbow, left S51.012A Dementia F03.90 Contusion of knee, left S80.02XA ASHLI (acute kidney injury) N17.9
[2023-03-24] MEDS: heparin 5,000 unit/mL INJ 1 mL 5000 UNIT SUBCUT (23:28)
[2023-03-24] MEDS: sodium chloride 0.9% 1,000 ML 75 ML IV (23:28)
[2023-03-25] VITALS (9 sets, daily range): BP systolic 97–165; BP diastolic 56–78; PULSE 59–79; RESP 13–16; TEMP 36.4–37; O2SAT 94–100
[2023-03-25 05:10] LABS: Basophils % 0.4 %; Eosinophils # 0.1 10^3/uL (0.0-0.8); Eosinophils % 1.4 %; Hematocrit 34.3 % (36-47); Lymphocytes # 0.6 10^3/uL (0.8-4.8); Lymphocytes % 7.9 %; Mean Corpuscular HGB Conc 31.8 g/dL (30-55); Mean Corpuscular Hemoglobin 31.2 pg (27-33); Mean Corpuscular Volume 98.3 fl (85-98); Monocytes # 0.7 10^3/uL (0.2-0.9); Monocytes % 8.3 %; Neutrophils # 6.49 10^3/uL (1.8-7.7); Neutrophils % 81.2 %; Nucleated Red Blood Cells % 0 %; Platelet Count 134 10^3/cmm (157-399); Red Blood Count 3.49 10^6/uL (3.85-5.65); Red Cell Distribution Width 13.2 % (12.1-15.1); White Blood Count 7.98 10^3/uL (3.29-11.43)
[2023-03-25 05:34] LABS: Alanine Aminotransferase 45 U/L (0-33); Albumin Level 3.8 g/dL (3.5-5.2); Alkaline Phosphatase 76 U/L (35-105); Anion Gap 12.9 (5-19); Aspartate Amino Transferase 90 U/L (0-32); Blood Urea Nitrogen 19 mg/dL (8-23); Calcium 8.8 mg/dL (8.5-10.5); Carbon Dioxide 23 mmol/L (22-29); Chloride 107 mmol/L (98-107); Globulin 2.3 g/dL (1.3-4.6); Glucose 129 mg/dL (65-115); Osmolality Calculated 290 mOsm/kg (285-295); Potassium 4.9 mmol/L (3.5-5.1); Sodium 138 mmol/L (136-145); Total Bilirubin 0.3 mg/dL (0.15-1.2); Total Protein 6.1 g/dL (6.6-8.7)
[2023-03-25 05:37] LABS: Creatinine Clr Calc Pharmacy 36.7651
--- NOTE | 2023-03-25 05:55 | XR_ITS ---
WS: [id number] XR chest 1V portable [id number] REASON FOR EXAM: evaluate for rib fracture FINDINGS: The chest appears unchanged compared to 08/23/2022. Mild tortuosity of the thoracic aorta. Normal heart size. Calcified granulomatous disease in both hemithoraces. Chronic reticular interstitial lung opacities in the left lower lung field. No acute pulmonary parenchymal or pleural abnormality. The bony thorax is intact. No rib fracture identified. IMPRESSION: No acute abnormality. No rib fracture identified.
--- NOTE | 2023-03-25 05:56 | XR_ITS ---
WS: [email or web address] XR lumbar spine 1V port [id number] REASON FOR EXAM: evaluate for fracture FINDINGS: Severe rotatory scoliosis convex left. No significant compression deformity identified however the lateral view is much more sensitive for l umbar compression fracture. Significant changes of degenerative spondylosis. IMPRESSION: Severe rotatory scoliosis and degenerative spondylosis. No acute abnormality identified.
--- NOTE | 2023-03-25 05:59 | CT_ITS ---
WS: [id number] Noncontrast CT pelvis TECHNIQUE: Noncontrast CT pelvis with coronal and sagittal reformatted images. CLINICAL INFORMATION: suspected pubic sympysis fracture on XR COMPARISON: Radiograph 03/24/2023 DLP: 479.[address] scans at [facility] use at least one of these dose optimization techniques: automated e xposure control; mA and/or kV adjustment per patient size (includes targeted exams where dose is matc hed to clinical indication); or iterative reconstruction. FINDINGS: Minimally displaced fracture involving the LEFT pubic symphysis as seen on the prior radiograph. No s ignificant pubic symphysis widening. This extends into the adjacent superior pubic ramus. Normal acet abulum. Femoral heads appear normal. Mild disc osteophyte complex L5-S1 with mild to moderate bilater al foraminal narrowing. Additional tiny nondisplaced fracture with cortical irregularity along the LEFT sacral ala. Recommend correlation for LEFT sacral pain. Sigmoid diverticulosis. Moderate facet arthropathy lower lumbar spine. IMPRESSION: 1. Minimally displaced fracture involving the LEFT superior pubic ramus at the pubic symphysis as seen on the prior radiograph. No significant pubic symphysis widening. 2. Small amount of associated edema along the LEFT pubic ramus and pubic symphysis. 3. Additional tiny nondisplaced fracture with cortical irregularity along the LEFT sacral ala. Recom mend correlation for LEFT sacral pain.
[2023-03-25] MEDS: levothyroxine 50 mcg Tablet PO (06:21)
[2023-03-25] MEDS: cefTRIAXone 1,000 MG in sodium chloride 0.9% (plus) 50 ML 100 MG IV (06:21)
[2023-03-25] MEDS: psyllium powder Pkt 2 PACKET PO (06:38)
[2023-03-25] MEDS: HYDROcodone-acetaminophen 5-325 mg Tablet 1 TAB PO (06:41)
[2023-03-25 06:46] LABS: Add Urine Microscopic? NO; Charge for UA Resulting for Rev
[2023-03-25 07:07] LABS: Creatine Phosphokinase 564 U/L (26-192)
[2023-03-25 07:13] LABS: Bilirubin Urine Neg (Negative); Blood Urine Neg (Negative); Glucose Urine UA Norm (Normal); Ketones Urine Negative (Negative); Leukocyte Esterase Urine Negative (Negative); Nitrate Urine Negative (Negative); Protein Urine Neg (Negative); Urine Appearance Clear (CLEAR); Urine Color Yellow (Yellow); Urobilinogen Urine Norm (Negative); pH Urine 6 (5-7)
[2023-03-25] MEDS: donepezil 5 MG Tablet PO (09:28)
[2023-03-25] MEDS: pantoprazole DR 40 mg Tablet PO (09:28)
--- NOTE | 2023-03-25 10:20 | CT_ITS ---
WS: [id number] CT HEAD TECHNIQUE: Noncontrast CT of the head obtained from the skullbase to the vertex. CLINICAL INFORMATION: fall COMPARISON: None. DLP: 1048.[address] scans at [facility] use at least one of these dose optimization techniques: automated e xposure control; mA and/or kV adjustment per patient size (includes targeted exams where dose is matc hed to clinical indication); or iterative reconstruction. FINDINGS: No evidence of intracranial hemorrhage or mass effect. Ventricular system and basal cisterns are strickland nt. Mild small vessel changes with moderate parenchymal volume loss. Vascular calcification. No extra -axial fluid collections. No evidence of mass or mass effect. Mild mucosal thickening in the paranasal sinuses. Mastoid air cells are well aerated. Normal posterio r nasopharynx. IMPRESSION: 1. No evidence of intracranial hemorrhage or mass effect. 2. No acute intracranial findings.
--- NOTE | 2023-03-25 10:20 | XRR_ITS ---
PROCEDURE INFORMATION: Exam: XR Left Shoulder Exam date and time: 03/25/2023 1:44 PM Age: 82 years old Clinical indication: Injury or trauma; Fall; Blunt trauma (contusions or hematomas); Shoulder; Left; Additional info: Falll, pain TECHNIQUE: Imaging protocol: Radiologic exam of the left shoulder. Views: 1 view. COMPARISON: CR XR chest 1V portable [id number] 03/25/2023 8:31 AM FINDINGS: Bones/joints: Osteopenia. Soft tissues: Normal. XR/XR shoulder LT 1V 85671 IMPRESSION: Unremarkable AP view of the left shoulder which generally is not adequate to exclude an acute bony abnormality or dislocation, especially with this degree of demineralization.
--- NOTE | 2023-03-25 10:20 | XRR_ITS ---
PROCEDURE INFORMATION: Exam: XR Ribs Exam date and time: 03/25/2023 1:48 PM Age: 82 years old Clinical indication: Injury or trauma; Fall; Rib area, left side; Blunt trauma; Additional info: Fall pain TECHNIQUE: Imaging protocol: Radiologic exam of the of the ribs. Views: 3 views. Bilateral ribs. COMPARISON: CR XR chest 1V portable [id number] 03/25/2023 8:31 AM FINDINGS: Bones/joints: Normal. Soft tissues: Normal. XR/XR ribs BI 3V* [id number] IMPRESSION: No acute findings.
--- NOTE | 2023-03-25 10:21 | ECG_ITS ---
[facility] Test Date: 2023-03-25 Pat Name: Isabelle Camacho Department: Room: 252 Gender: Female Family Services Specialist: : 1940 Requested By: Zac Herring Order Number: [id number] Kylee MD: Tino Che M.D. Measurements Intervals [place] Rate: 64 P: 77 NV: 175 QRS: 6 QRSD: 81 T: 47 QT: 400 QTc: 413 Interpretive Statements SINUS RHYTHM MODERATE ST DEPRESSION [0.05+ mV ST DEPRESSION] Compared to ECG 08/23/2022 15:46:25 ST (T wave) deviation now present Myocardial infarct finding no longer present Electronically Signed On 03-25-2023 12:15:00 CDT by Tino Che M.D. [id number]
--- NOTE | 2023-03-25 10:22 | PC.CHAP ---
Pastoral Care Encounter/Spiritual Assessment Type of Contact [] Declined gang pusher visit [] Patient/Family/Request visit [] Outpatient visit [] Follow-up visit [] Physician referral [] Code/Alert [x] Routine visit [] Staff referral [] Actively dying [] Patient sleeping [] Family support [] [] Out of room [] Palliative care [] [x] Receiving care in room [] Pre-surgical visit [] Trauma [] Long length of stay [] ICU visit [] Other: Relational/Emotional Strength [x] Patient feels connected with others/family/visitors/staff [] Distress [] Loneliness/isolation [] Abandonment Spirituality of Patient [x] Person of Nirmala [] Attends Taoist of their Nirmala [x] Believes in Prayer [] Reads Bible or Baptism materials [] There are Spiritual issues to be addressed Regional Sales Manager Interventions [x] Prayer [x] Active listening [x] Non-anxious presence [x] Spiritual/emotional support [] Crisis/trauma care [x] Spiritual counseling [] Bereavement support [] Provided bereavement packet [] Provided Bible/devotional materials [] Provided toy/stuffed animal, coloring book to patient or family member [] Provided Communion [] Anointing/Isabella [] Salvation [x] Completed spiritual assessment [] Other: Impact on Illness or Injury [] Angry [] Fearful [] Anxious [] Often cries [] Exhaustion [] Unable to work [] Unable to attend religion [] Unable to walk/stand [] Unable to read [] Unable to drive [] Unable to eat/drink [] Unable to sleep [] Unable to be with family [] Patient intubated [] Other: Summary senior fell not sure about her her health +1 family has a good attitude well go home Time spent with patient 10 mins
[2023-03-25] MEDS: heparin 5,000 unit/mL INJ 1 mL 5000 UNIT SUBCUT ×2 (10:37→22:55)
[2023-03-25 11:01] LABS: Troponin(5th) Baseline 14 ng/L (0-10)
[2023-03-25 11:22] LABS: Procalcitonin 0.15 ng/mL (0-0.5); Thyroid Stimulating Hormone 1.29 uIU/mL (0.27-4.20)
[2023-03-25 11:40] LABS: C Reactive Protein 18.3 mg/L (0.0-4.9)
--- NOTE | 2023-03-25 11:55 | ECG_ITS ---
[facility] Test Date: 2023-03-25 Pat Name: Isabelle Camacho Department: Room: 252 Gender: Female Desk Top Publisher: : 1940 Requested By: Zac Herring Order Number: [id number] Kylee MD: Tino Che M.D. Measurements Intervals [place] Rate: 56 P: 78 CA: 167 QRS: 10 QRSD: 87 T: 47 QT: 421 QTc: 408 Interpretive Statements SINUS BRADYCARDIA SEPTAL MYOCARDIAL INFARCTION , PROBABLY OLD [40+ ms Q WAVE IN V1/V2] Compared to ECG 03/25/2023 11:00:37 Myocardial infarct finding now present Sinus rhythm no longer present ST (T wave) deviation no longer present Electronically Signed On 03-25-2023 12:14:57 CDT by Tino Che M.D. [id number]
[2023-03-25 13:04] LABS: Troponin 5 2HR 12.67 ng/L (0-10); Troponin 5 2HR Delta -1.33 ABS# (0-10)
--- NOTE | 2023-03-25 15:53 | ECG_ITS ---
[facility] Test Date: 2023-03-25 Pat Name: Isabelle Camacho Department: Room: 252 Gender: Female Renewals Manager: : 1940 Requested By: Zac Herring Order Number: [id number] Kylee MD: Tino Che M.D. Measurements Intervals [place] Rate: 64 P: 79 MA: 162 QRS: 22 QRSD: 82 T: 57 QT: 384 QTc: 399 Interpretive Statements SINUS RHYTHM SEPTAL MYOCARDIAL INFARCTION , PROBABLY OLD [40+ ms Q WAVE IN V1/V2] Compared to ECG 03/25/2023 11:55:47 Sinus bradycardia no longer present Myocardial infarct finding still present Electronically Signed On 03-25-2023 16:20:15 CDT by Tino Che M.D. [id number]
--- NOTE | 2023-03-25 16:24 | P.PN_ITS ---
Subjective Subjective: Patient was seen this morning, she is alert to person, to place, not to time she does follow commands, however is confused, when asked her how she fell, she tells me that there was a cat, and somehow she ended up on the floor but she is not sure, she denies any chest pain, shortness of breath, does complain of pain in her left elbow, does complain of left rib pain to palpation , Vitals/I&O/Wt Last Vital Signs Temp 98.0 F 03/25/23 15:05 Pulse 66 03/25/23 15:05 Resp 16 03/25/23 15:05 BP 127/71 03/25/23 15:05 Pulse Ox 98 03/25/23 15:05 O2 Del Method Room Air 03/25/23 15:05 03/25/23 03/25/23 03/25/23 06:59 14:59 22:59 Intake Total 150 / 150 Balance 150 / 150 Weight last 48 hrs Weight 77.111 kg Physical Exam Const: COMMON NORMALS: no acute distress Resp: COMMON NORMALS: normal respiratory effort, No retractions, No use of accessory muscles and clear to auscultation bilaterally AUSCULTATION: clear to auscultation bilaterally Cardio: COMMON NORMALS: regular rate, regular rhythm, S1 normal heart sound present and S2 normal heart sound present RATE: regular rate RHYTHM: regular rhythm HEART SOUNDS: S1 normal heart sound present and S2 normal heart sound present GI: COMMON NORMALS: Normal to inspection, nondistended, normoactive bowel sounds present and non-tender Extremity: COMMON NORMALS: no pedal edema Psych: COMMON NORMALS: mental status grossly normal Skin: NARRATIVE SKIN EXAM: Left rib pain on palpation Data 03/25/23 04:04 03/25/23 04:04 A&P Assessment and plan (1) Fracture of left superior pubic ramus: Fracture of the left pubic symphysis after sustaining a mechanical fall at home today. CT of the pelvis 1.? ? Minimally displaced fracture involving the LEFT superior pubic ramus at the pubic symphysis as seen on the prior radiograph. No significant pubic symphysis widening.? 2.? Small amount of associated edema along the LEFT pubic ramus and pubic symphysis. 3.? Additional tiny nondisplaced fracture with cortical irregularity along the LEFT sacral ala. Recommend correlation for LEFT sacral pain. Patient attempted to walk in the emergency room but was unable to. Could barely take a few steps, family does not feel they will be able to take care of her needs at home given that she is unable to take even a few steps at this time. Orthopedic consult PT OT assessment As needed hydrocodone APAP for pain management (2) Laceration of elbow, left: Sutured in the emergency room. Approximately 8 cm laceration over the left elbow we will have to find out if patient received tetanus vaccination (3) Dementia: Mentation is currently at baseline Continue home medications (4) Contusion of knee, left: no underlying fractures visualized (5) ASHLI (acute kidney injury): Creatinine 1.2, likely rhabdomyolysis Continue normal saline 75 cc an hour (6) Rhabdomyolysis: (7) Encephalopathy: Is alert person, not to place, not to time could be underlying dementia, continue IV fluids (8) Gait disturbance: (9) Dementia: (10) Hyperlipidemia: (11) Hypertension: Plan , XPlan for today given encephalopathy order CT of the head, complains of shoulder pain shoulder of the ribs, troponin series, TSH, Attestations Medical Necessity Statement*: Patient requires hospitalization for fall, with pubic rami fracture, pain control Coding Level of Care Code 95512 Moderate MDM includes number and complexity of problems actively addressed during encounter, amount and/or complexity of data reviewed/ordered and described risk of complication, morbidity or mortality of management as do cumented Diagnoses Fracture of left superior pubic ramus S32.512A Laceration of elbow, left S51.012A Dementia F03.90 Contusion of knee, left S80.02XA ASHLI (acute kidney injury) N17.9 Rhabdomyolysis M62.82 Encephalopathy G93.40 Gait disturbance R26.9 Hyperlipidemia E78.5 Hypertension I10
[2023-03-25 17:38] LABS: Troponin 5 6HR 12.77 ng/L (0-10); Troponin 5 6HR Delta -1.23 ng/L (0-12)
--- NOTE | 2023-03-25 18:21 | P.CONIM_ITS ---
Providers/Reason For Consult Consulting Physician/Specialty*: Divina Acharya MD Reason for Consult*: Pelvic fracture Requesting Physician: Dr. Cecilia Ness Attending Physician: Zac Herring MD Primary Care Provider: JOVITA LOBO History of Present Illness History of Present Illness Isabelle Camacho is a 82 year old female who presented last evening through the emergency department. She had fallen while coming out of her garage at home and she fell essentially onto cement. They are unsure as to whether her knee gave way or why she fell, but she denied any dizziness or reason for her fall. The patient was unable to ambulate without pain. She also had a laceration on her left elbow. While in the emergency department, she was diagnosed with a pubic ramus fracture both inferior and superior. Subsequent studies have been obtained. Medications/Allergies Home Medications Medication Instructions Recorded Confirmed Last Taken Type aspirin 81 mg tablet,delayed 81 mg PO BEDTIME 08/23/22 03/24/23 03/23/23 20:00 History release buspirone 5 mg tablet 5 mg PO BEDTIME PRN Anxiety 08/23/22 03/24/23 03/23/23 20:00 History ezetimibe 10 mg tablet 10 mg PO BEDTIME 08/23/22 03/24/23 03/23/23 20:00 History levothyroxine 50 mcg tablet 50 mcg PO QAM 08/23/22 03/24/23 03/24/23 08:00 History polyethylene glycol 3350 17 gram 8 g PO BEDTIME 08/23/22 03/24/23 08/22/22 History oral powder packet (Miralax) psyllium seed (sugar) oral powder 2 tsp PO QAM 08/23/22 03/24/23 Unknown History (Metamucil (sugar) oral powder) donepezil 5 mg tablet 5 mg PO DAILY 03/24/23 03/24/23 03/24/23 08:00 History sulfamethoxazole 800 1 tab PO Q12H 03/24/23 03/24/23 Unknown History mg-trimethoprim 160 mg tablet (Bactrim DS) Allergies Allergy/AdvReac Type Severity Reaction Status Date / Time ciprofloxacin [From Cipro] Allergy Unknown Verified 08/23/22 14:01 Current Medications Generic Name Dose Route Start Last Admin Trade Name Freq PRN Reason Stop Dose Admin Hydrocodone Bitart/Acetaminophen 1 tab 03/24/23 21:19 03/25/23 06:41 Hydrocodone-Acetaminophen 5-325 Mg Tablet PO 1 tab Q4H PRN Administration MODERATE TO SEVERE PAIN Donepezil HCl 5 mg 03/25/23 09:00 03/25/23 09:28 Donepezil 5 Mg Tablet PO 5 mg DAILY ALEXY Administration Heparin Sodium (Porcine) 5,000 unit 03/24/23 23:00 03/25/23 10:37 Heparin 5,000 Unit/Ml Inj 1 Ml SUBCUT 5,000 unit Q12H ALEXY Administration Sodium Chloride 1,000 mls @ 75 mls/hr 03/24/23 23:00 03/24/23 23:28 Sodium Chloride 0.9% IV 75 mls/hr .[id number] ALEXY Administration Ceftriaxone Sodium 1,000 mg/ 50 mls @ 100 mls/hr 03/25/23 06:15 03/25/23 06:57 Sodium Chloride IV Infused Q24H ALEXY Infusion Protocol Levothyroxine Sodium 50 mcg 03/25/23 06:00 03/25/23 06:21 Levothyroxine 50 Mcg Tablet PO 50 mcg QAM ALEXY Administration Pantoprazole Sodium 40 mg 03/25/23 09:00 03/25/23 09:[address] 40 Mg Tablet PO 40 mg DAILY ALEXY Administration Psyllium Hydrophilic Mucilloid 2 packet 03/25/23 06:00 03/25/23 06:38 Psyllium Powder Pkt PO 2 packet QAM ALEXY Administration PFSH Acute PFSH: Medical History Dementia Hyperlipidemia Hypertension Surgical History No significant past surgical history Vitals/I&O/Wt Last Vital Signs Temp 98.0 F 03/25/23 15:05 Pulse 66 03/25/23 15:05 Resp 16 03/25/23 15:05 BP 127/71 03/25/23 15:05 Pulse Ox 98 03/25/23 15:05 O2 Del Method Room Air 03/25/23 15:05 03/25/23 03/25/23 03/25/23 06:59 14:59 22:59 Intake Total 150 / 150 240 / 240 Balance 150 / 150 240 / 240 Weight last 48 hrs Weight 170 lb Physical Exam Const: COMMON NORMALS: no acute distress, average body habitus, patient oriented x3 and alert GENERAL APPEARANCE: cooperative and comfortable ORIENTATION/CONSCIOUSNESS: Yes awake HENMT: COMMON NORMALS: normocephalic and atraumatic HEAD & SCALP: normocephalic and atraumatic Eye: GENERAL EYE: appearance normal, both eyes and all related structures Chest: COMMONS NORMALS: normal inspection of the chest Resp: COMMON NORMALS: normal respiratory effort EFFORT & INSPECTION: Yes able to speak in complete sentences and Yes symmetric chest movement Back/Pelvis: OTHER: There is tenderness over the sacral ala to palpation. There is also tenderness over the pubic symphysis. Extremity: OTHER: There is pain to any attempt at range of motion of the lower extremities. Neuro: COMMON NORMALS: patient oriented x3 SENSORIUM/ORIENTATION: Yes alert Psych: COMMON NORMALS: mental status grossly normal APPEARANCE: Yes grossly normal ATTITUDE: Yes calm and Yes engaged ATTENTION/CONCENTRATION: Yes attention grossly intact Skin: COMMON NORMALS: no rashes or lesions noted GENERAL SKIN EXAM: no rashes or lesions noted Data 03/25/23 04:04 03/25/23 04:04 Xray Ortho: My impression: Multiple imaging studies have been obtained. These include relevant orthopedic studies with elbow, femur, and pelvis. There was also a pelvis CT as well as left shoulder and rib x-rays. Findings on the studies include left elbow, left femur, and pelvis x-ray which demonstrates a left pubic symphysis fracture. Additional imaging was obtained in the form of a pelvis CT, and in addition to the left superior pubic ramus fracture with the pubic symphysis, there was also associated edema along the left pubic ramus and a nondisplaced fracture with cortical irregularity along the sacral ala. Further imaging including ribs and left shoulder were also negative for acute findings. A&P Assessment and plan (1) Fracture of left superior pubic ramus: After evaluation, the patient's main issue appears to be her inferior and superior pubic ramus fracture on the left with associated sacral ala fracture which is nondisplaced. Secondary to the sacral ala fracture and physical examination confirming that there is tenderness in this area, the patient will need to be only touchdown weightbearing on the left. As she has a significant laceration to the left elbow and severe pain with any range of motion secondary to this, this will likely require wheelchair ambulation for the near future. Additionally, the patient will likely require intermediate at the time of discharge. (2) Fracture of left inferior pubic ramus: (3) Sacral fracture, closed: (4) Laceration of elbow, left: Coding Level of Care Code Acute Code for [facility] Diagnoses Fracture of left superior pubic ramus S32.512A Fracture of left inferior pubic ramus S32.592A Sacral fracture, closed S32.10XA Laceration of elbow, left S51.012A
[2023-03-25] MEDS: sodium chloride 0.9% 1,000 ML 75 ML IV (18:38)
--- NOTE | 2023-03-25 18:47 | PM.PN ---
Vitals/I&O/Wt Last Vital Signs Temp 98.0 F 03/25/23 15:05 Pulse 66 03/25/23 15:05 Resp 16 03/25/23 15:05 BP 127/71 03/25/23 15:05 Pulse Ox 98 03/25/23 15:05 O2 Del Method Room Air 03/25/23 15:05 03/25/23 03/25/23 03/25/23 06:59 14:59 22:59 Intake Total 150 / 150 1240 / 1240 Balance 150 / 150 1240 / 1240 Weight last 48 hrs Weight 170 lb Data 03/25/23 04:04 03/25/23 04:04 Coding Level of Care Code Acute Code for [facility] Diagnoses
[2023-03-25] MEDS: polyethylene glycol 3350 Pkt 17 gm 8 GM PO (20:42)
[2023-03-25] MEDS: aspirin 81 mg EC Tablet PO (20:42)
[2023-03-25] MEDS: ezetimibe 10 mg Tablet PO (20:42)
[2023-03-25] MEDS: BuSPIRONE 10 mg Tablet 5 MG PO (23:25)
[2023-03-26] VITALS (8 sets, daily range): BP systolic 126–163; BP diastolic 64–75; PULSE 68–83; RESP 13–16; TEMP 36.4–36.9; O2SAT 94–96
[2023-03-26] MEDS: HYDROcodone-acetaminophen 5-325 mg Tablet 1 TAB PO ×2 (00:15→13:45)
[2023-03-26 04:40] LABS: Basophils % 0.5 %; Eosinophils # 0.2 10^3/uL (0.0-0.8); Eosinophils % 2.1 %; Hematocrit 32.1 % (36-47); Lymphocytes # 0.6 10^3/uL (0.8-4.8); Mean Corpuscular HGB Conc 32.1 g/dL (30-55); Mean Corpuscular Hemoglobin 31.7 pg (27-33); Mean Corpuscular Volume 98.8 fl (85-98); Mean Platelet Volume 12.2 fL (7.4-10.4); Monocytes # 0.7 10^3/uL (0.2-0.9); Monocytes % 8.4 %; Neutrophils # 6.47 10^3/uL (1.8-7.7); Neutrophils % 80.6 %; Nucleated Red Blood Cells % 0 %; Platelet Count 109 10^3/cmm (157-399); Red Blood Count 3.25 10^6/uL (3.85-5.65); Red Cell Distribution Width 13.2 % (12.1-15.1); White Blood Count 8.02 10^3/uL (3.29-11.43)
[2023-03-26 04:59] LABS: Alanine Aminotransferase 114 U/L (0-33); Albumin Level 3.6 g/dL (3.5-5.2); Alkaline Phosphatase 78 U/L (35-105); Blood Urea Nitrogen 11 mg/dL (8-23); Calcium 8.5 mg/dL (8.5-10.5); Carbon Dioxide 21 mmol/L (22-29); Chloride 108 mmol/L (98-107); Creatinine Clr Calc Pharmacy 55.1476; Globulin 2.3 g/dL (1.3-4.6); Glucose 127 mg/dL (65-115); Osmolality Calculated 285 mOsm/kg (285-295); Sodium 137 mmol/L (136-145); Total Bilirubin 0.3 mg/dL (0.15-1.2); Total Protein 5.9 g/dL (6.6-8.7)
[2023-03-26 05:04] LABS: Anion Gap 12.6 (5-19); Aspartate Amino Transferase 109 U/L (0-32); Potassium 4.6 mmol/L (3.5-5.1)
[2023-03-26] MEDS: levothyroxine 50 mcg Tablet PO (05:35)
[2023-03-26] MEDS: cefTRIAXone 1,000 MG in sodium chloride 0.9% (plus) 50 ML 100 MG IV (05:35)
[2023-03-26] MEDS: psyllium powder Pkt 2 PACKET PO (05:35)
--- NOTE | 2023-03-26 08:11 | PC.OT ---
Late Entry - Note for yesterday 03/25/2023. OT eval held due to orthopedic consult for updated weightbearing and activity status. Will complete OT eval once cleared with new orders posted.
--- NOTE | 2023-03-26 08:39 | XR_ITS ---
WS: [id number] XR shoulder LT min 2V* [id number] REASON FOR EXAM: pain FINDINGS: No fracture or focal bone lesion. Acromioclavicular joint space is intact and relatively well preserved. No significant subarticular yulisa ne abnormality. Glenohumeral joint space is not optimally demonstrated. There may be mild narrowing of the joint spac e. There is mild subchondral sclerosis in the glenoid. No soft tissue abnormality. IMPRESSION: No acute abnormality. 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
[2023-03-26] MEDS: sodium chloride 0.9% 1,000 ML 75 ML IV (08:47)
[2023-03-26] MEDS: pantoprazole DR 40 mg Tablet PO (08:52)
[2023-03-26] MEDS: donepezil 5 MG Tablet PO (08:52)
[2023-03-26] MEDS: heparin 5,000 unit/mL INJ 1 mL 5000 UNIT SUBCUT ×2 (10:58→22:58)
--- NOTE | 2023-03-26 11:42 | PC.SOCIAL ---
Pg 2 IMM Explained to pt & family Pg 2 IMM. No questions voiced. Provided pt a copy. Initialed, dated, & timed a copy & placed in chart.
[2023-03-26 11:56] LABS: Creatine Phosphokinase 445 U/L (26-192)
--- NOTE | 2023-03-26 12:42 | P.PN_ITS ---
Subjective Subjective: Patient was seen this morning, patient is at bedside, she is alert to person, not to place, not to time, tells me that she is about at baseline currently, yesterday afternoon she had episodes of confusion, she does complain of left shoulder pain, left elbow pain, during examination, Vitals/I&O/Wt Last Vital Signs Temp 97.6 F 03/26/23 08:00 Pulse 68 03/26/23 11:24 Resp 16 03/26/23 11:24 BP 132/75 03/26/23 11:24 Pulse Ox 94 03/26/23 11:24 O2 Del Method Room Air 03/26/23 11:24 03/25/23 03/26/23 03/26/23 22:59 06:59 14:59 Intake Total 1240 / 1240 50 / 1290 1240 / 1240 Output Total 400 / 400 Balance 840 / 840 50 / 890 1240 / 1240 Weight last 48 hrs Weight 77.111 kg Physical Exam Const: COMMON NORMALS: alert ORIENTATION/CONSCIOUSNESS: Yes awake and Yes oriented to person; not oriented to place and not oriented to time Resp: COMMON NORMALS: normal respiratory effort, No retractions, No use of accessory muscles and clear to auscultation bilaterally AUSCULTATION: clear to auscultation bilaterally Cardio: COMMON NORMALS: regular rate, regular rhythm, S1 normal heart sound present and S2 normal heart sound present RATE: regular rate RHYTHM: regular rhythm HEART SOUNDS: S1 normal heart sound present and S2 normal heart sound present GI: COMMON NORMALS: Normal to inspection, nondistended, normoactive bowel sounds present and non-tender Extremity: COMMON NORMALS: no pedal edema Neuro: SENSORIUM/ORIENTATION: Yes alert, Yes oriented to person, No oriented to place and No oriented to time Psych: COMMON NORMALS: mental status grossly normal Data 03/26/23 04:13 03/26/23 04:13 A&P Assessment and plan (1) Fracture of left superior pubic ramus: Fracture of the left pubic symphysis after sustaining a mechanical fall at home today. CT of the pelvis 1.? ? Minimally displaced fracture involving the LEFT superior pubic ramus at the pubic symphysis as seen on the prior radiograph. No significant pubic symphysis widening.? 2.? Small amount of associated edema along the LEFT pubic ramus and pubic symphysis. 3.? Additional tiny nondisplaced fracture with cortical irregularity along the LEFT sacral ala. Recommend correlation for LEFT sacral pain. Patient attempted to walk in the emergency room but was unable to. Could barely take a few steps, family does not feel they will be able to take care of her needs at home given that she is unable to take even a few steps at this time. Orthopedic consult PT OT assessment As needed hydrocodone APAP for pain management (2) Laceration of elbow, left: Sutured in the emergency room. Approximately 8 cm laceration over the left elbow, currently wrapped, received tetanus vaccination in the ER (3) Dementia: Mentation is currently at baseline Continue home medications (4) Contusion of knee, left: no underlying fractures visualized (5) ASHLI (acute kidney injury): Creatinine 1.2, likely rhabdomyolysis Continue normal saline 75 cc an hour (6) Rhabdomyolysis: Continues to have elevated CPK continue IV fluids at 50 cc (7) Encephalopathy: Is alert person, not to place, not to time could be underlying dementia, (8) Gait disturbance: (9) Dementia: (10) Hyperlipidemia: (11) Hypertension: Plan Complaints of chest pain yesterday, serial EKGs, serial troponin, telemetry monitoring Plan for today, x-ray left shoulder 2 views as she continues to complain of pain Attestations Medical Necessity Statement*: Patient requires hospitalization for fall, rhabdomyolysis, encephalopathy, sacral fractures, intractable pain Diagnoses Fracture of left superior pubic ramus S32.512A Laceration of elbow, left S51.012A Dementia F03.90 Contusion of knee, left S80.02XA ASHLI (acute kidney injury) N17.9 Rhabdomyolysis M62.82 Encephalopathy G93.40 Gait disturbance R26.9 Hyperlipidemia E78.5 Hypertension I10
--- NOTE | 2023-03-26 13:19 | P.PN_ITS ---
Subjective Subjective: Patient is seen today with her family. She is doing well and is much more comfortable moving that left upper extremity. Plans are being made for her discharge to detention when appropriate. Medications: Reviewed: Yes Vitals/I&O/Wt Last Vital Signs Temp 97.6 F 03/26/23 08:00 Pulse 68 03/26/23 11:24 Resp 16 03/26/23 11:24 BP 132/75 03/26/23 11:24 Pulse Ox 94 03/26/23 11:24 O2 Del Method Room Air 03/26/23 11:24 03/25/23 03/26/23 03/26/23 22:59 06:59 14:59 Intake Total 1240 / 1240 50 / 1290 1480 / 1480 Output Total 400 / 400 Balance 840 / 840 50 / 890 1480 / 1480 Weight last 48 hrs Weight 170 lb Physical Exam Const: COMMON NORMALS: no acute distress, average body habitus, patient oriented x3 and alert GENERAL APPEARANCE: cooperative and comfortable ORIENTATION/CONSCIOUSNESS: Yes awake HENMT: COMMON NORMALS: normocephalic and atraumatic HEAD & SCALP: normocephalic and atraumatic Eye: GENERAL EYE: appearance normal, both eyes and all related structures Chest: COMMONS NORMALS: normal inspection of the chest Resp: COMMON NORMALS: normal respiratory effort EFFORT & INSPECTION: Yes able to speak in complete sentences and Yes symmetric chest movement Extremity: NARRATIVE EXTREMITY EXAM: Patient is more easily able to move her left upper extremity. She is working with physical therapy, but is limited by this left upper extremity. She is to be limited weightbearing to the left lower extremity secondary to sacral ala fracture and pubic ramus fractures involving the inferior and superior pubic ramus. Neuro: COMMON NORMALS: patient oriented x3 SENSORIUM/ORIENTATION: Yes alert Psych: COMMON NORMALS: mental status grossly normal APPEARANCE: Yes grossly normal ATTITUDE: Yes calm and Yes engaged ATTENTION/CONCENTRATION: Yes attention grossly intact Skin: COMMON NORMALS: no rashes or lesions noted GENERAL SKIN EXAM: no rashes or lesions noted Data 03/26/23 04:13 03/26/23 04:13 A&P Assessment and plan (1) Fracture of left superior pubic ramus: The patient was seen yesterday in consultation for inferior and superior pubic ramus fracture as well as a sacral ala fracture and laceration of the left elbow causing difficulty using her left upper extremity. Her symptoms and pain level have improved since yesterday. She will likely require detention at the time of discharge secondary to limitations in weightbearing status on both of these extremities. She may use the left upper extremity for weightbearing as tolerated, but currently, she has difficulty moving it without assistance from the opposite arm. Occupational Therapy is working with her on this. She will require intensive physical therapy with hopes to return to her free injury living situation. (2) Fracture of left inferior pubic ramus: (3) Sacral fracture, closed: (4) Laceration of elbow, left: Attestations Medical Necessity Statement*: Patient requires ongoing physical therapy and will likely require detention at the time of discharge. Coding Level of Care Code Acute Code for [facility] Diagnoses Fracture of left superior pubic ramus S32.512A Fracture of left inferior pubic ramus S32.592A Sacral fracture, closed S32.10XA Laceration of elbow, left S51.012A
[2023-03-26] MEDS: polyethylene glycol 3350 Pkt 17 gm PO (18:35)
[2023-03-26] MEDS: ezetimibe 10 mg Tablet PO (20:02)
[2023-03-26] MEDS: aspirin 81 mg EC Tablet PO (20:02)
[2023-03-26] MEDS: polyethylene glycol 3350 Pkt 17 gm 8 GM PO (21:30)
[2023-03-27] VITALS (9 sets, daily range): BP systolic 116–158; BP diastolic 61–82; PULSE 72–85; RESP 13–18; TEMP 36.4–36.9; O2SAT 93–98
[2023-03-27] MEDS: HYDROcodone-acetaminophen 5-325 mg Tablet 1 TAB PO ×2 (02:37→20:40)
[2023-03-27] MEDS: sodium chloride 0.9% 1,000 ML 50 ML IV (02:42)
[2023-03-27 05:13] LABS: Basophils # 0.1 10^3/uL (0.0-0.1); Basophils % 0.6 %; Eosinophils # 0.2 10^3/uL (0.0-0.8); Eosinophils % 2.5 %; Hematocrit 30.3 % (36-47); Lymphocytes # 0.6 10^3/uL (0.8-4.8); Lymphocytes % 8.1 %; Mean Corpuscular Hemoglobin 31.7 pg (27-33); Mean Platelet Volume 12.4 fL (7.4-10.4); Monocytes # 0.7 10^3/uL (0.2-0.9); Monocytes % 9.2 %; Neutrophils # 6.22 10^3/uL (1.8-7.7); Neutrophils % 78.7 %; Nucleated Red Blood Cells % 0 %; Platelet Count 120 10^3/cmm (157-399); Red Blood Count 3.06 10^6/uL (3.85-5.65); White Blood Count 7.91 10^3/uL (3.29-11.43)
[2023-03-27] MEDS: levothyroxine 50 mcg Tablet PO (05:18)
[2023-03-27] MEDS: psyllium powder Pkt 2 PACKET PO (05:18)
[2023-03-27 05:41] LABS: Blood Urea Nitrogen 9 mg/dL (8-23); Calcium 8.5 mg/dL (8.5-10.5); Carbon Dioxide 21 mmol/L (22-29); Chloride 105 mmol/L (98-107); Creatinine Clr Calc Pharmacy 55.1476; Glucose 115 mg/dL (65-115); Osmolality Calculated 278 mOsm/kg (285-295); Sodium 134 mmol/L (136-145)
[2023-03-27 05:43] LABS: Creatine Phosphokinase 373 U/L (26-192)
[2023-03-27] MEDS: donepezil 5 MG Tablet PO (09:23)
[2023-03-27] MEDS: heparin 5,000 unit/mL INJ 1 mL 5000 UNIT SUBCUT ×2 (09:23→23:36)
[2023-03-27] MEDS: pantoprazole DR 40 mg Tablet PO (09:23)
--- NOTE | 2023-03-27 16:20 | P.PN_ITS ---
Subjective Subjective: Patient was seen this morning, she is alert to person, somewhat to place, not to time, she knows that she is in the hospital but does not know exactly where she recognizes at bedside, she has no complaints, she was working with physical therapy she has more mobility in the left shoulder, physical therapy tells me that she was able to raise her left shoulder above her head, without pain Vitals/I&O/Wt Last Vital Signs Temp 98.3 F 03/27/23 15:54 Pulse 85 03/27/23 15:54 Resp 18 03/27/23 15:54 BP 150/75 03/27/23 15:54 Pulse Ox 98 03/27/23 15:54 O2 Del Method Room Air 03/27/23 15:54 03/27/23 03/27/23 03/27/23 06:59 14:59 22:59 Intake Total 960 / 960 Balance 960 / 960 Physical Exam Const: COMMON NORMALS: no acute distress Resp: COMMON NORMALS: normal respiratory effort, No retractions, No use of accessory muscles and clear to auscultation bilaterally AUSCULTATION: clear to auscultation bilaterally Cardio: COMMON NORMALS: regular rate, regular rhythm, S1 normal heart sound present and S2 normal heart sound present RATE: regular rate RHYTHM: regular rhythm HEART SOUNDS: S1 normal heart sound present and S2 normal heart sound present GI: COMMON NORMALS: Normal to inspection, nondistended, normoactive bowel sounds present and non-tender Extremity: COMMON NORMALS: no pedal edema NARRATIVE EXTREMITY EXAM: Left forearm, hand swelling Data 03/27/23 04:03 03/27/23 04:03 A&P Assessment and plan (1) Fracture of left superior pubic ramus: Fracture of the left pubic symphysis after sustaining a mechanical fall at home today. CT of the pelvis 1.? ? Minimally displaced fracture involving the LEFT superior pubic ramus at the pubic symphysis as seen on the prior radiograph. No significant pubic symphysis widening.? 2.? Small amount of associated edema along the LEFT pubic ramus and pubic sym physis. 3.? Additional tiny nondisplaced fracture with cortical irregularity along the LEFT sacral ala. Recommend correlation for LEFT sacral pain. Patient attempted to walk in the emergency room but was unable to. Could barely take a few steps, family does not feel they will be able to take care of her needs at home given that she is unable to take even a few steps at this time. Orthopedic consult PT OT assessment As needed hydrocodone APAP for pain management (2) Laceration of elbow, left: Sutured in the emergency room. Approximately 8 cm laceration over the left elbow, currently wrapped, received tetanus vaccination in the ER (3) Dementia: Mentation is currently at baseline Continue home medications (4) Contusion of knee, left: no underlying fractures visualized (5) ASHLI (acute kidney injury): Creatinine 1.2, likely rhabdomyolysis Continue normal saline 75 cc an hour (6) Rhabdomyolysis: Continues to have elevated CPK continue IV fluids at 50 cc (7) Encephalopathy: Is alert person, not to place, not to time could be underlying dementia, (8) Gait disturbance: (9) Dementia: (10) Hyperlipidemia: (11) Hypertension: Plan Complaints of chest pain yesterday, serial EKGs, serial troponin, telemetry monitoring Plan for today, continue PT OT, pain control, has left hand swelling keep elevated as best as she can, stop fluids in the evening Attestations Medical Necessity Statement*: Patient requires hospitalization for fall, with pubic rami fractures, spoke to patient, spoke to patient's at bedside spoke to patient's son at bedside, spoke to physical therapy Diagnoses Fracture of left superior pubic ramus S32.512A Laceration of elbow, left S51.012A Dementia F03.90 Contusion of knee, left S80.02XA ASHLI (acute kidney injury) N17.9 Rhabdomyolysis M62.82 Encephalopathy G93.40 Gait disturbance R26.9 Hyperlipidemia E78.5 Hypertension I10
[2023-03-27] MEDS: polyethylene glycol 3350 Pkt 17 gm 8 GM PO (20:40)
[2023-03-27] MEDS: ezetimibe 10 mg Tablet PO (20:40)
[2023-03-27] MEDS: aspirin 81 mg EC Tablet PO (20:40)
[2023-03-28 04:00] VITALS: BP 137/68; PULSE 74; RESP 18; TEMP 36.4; O2SAT 96
[2023-03-28 04:54] LABS: Basophils # 0.1 10^3/uL (0.0-0.1); Basophils % 0.9 %; Eosinophils # 0.3 10^3/uL (0.0-0.8); Eosinophils % 4.9 %; Hematocrit 29.7 % (36-47); Lymphocytes # 1.1 10^3/uL (0.8-4.8); Lymphocytes % 19.2 %; Mean Corpuscular Hemoglobin 31.3 pg (27-33); Mean Platelet Volume 11.9 fL (7.4-10.4); Monocytes # 0.6 10^3/uL (0.2-0.9); Monocytes % 10.7 %; Neutrophils # 3.49 10^3/uL (1.8-7.7); Neutrophils % 63.2 %; Nucleated Red Blood Cells % 0 %; Platelet Count 143 10^3/cmm (157-399); Red Blood Count 2.94 10^6/uL (3.85-5.65); Red Cell Distribution Width 13.1 % (12.1-15.1); White Blood Count 5.52 10^3/uL (3.29-11.43)
[2023-03-28] MEDS: psyllium powder Pkt 2 PACKET PO (05:11)
[2023-03-28] MEDS: levothyroxine 50 mcg Tablet PO (05:11)
[2023-03-28 05:26] LABS: Anion Gap 11.6 (5-19); Blood Urea Nitrogen 11 mg/dL (8-23); Calcium 8.5 mg/dL (8.5-10.5); Carbon Dioxide 23 mmol/L (22-29); Chloride 107 mmol/L (98-107); Creatine Phosphokinase 194 U/L (26-192); Glucose 99 mg/dL (65-115); Osmolality Calculated 283 mOsm/kg (285-295); Potassium 4.6 mmol/L (3.5-5.1); Sodium 137 mmol/L (136-145)
[2023-03-28 06:17] VITALS: PULSE 59
[2023-03-28 07:33] VITALS: BP 156/77; PULSE 87; RESP 16; TEMP 36.5; O2SAT 96
[2023-03-28 09:27] LABS: Ferritin 214 ng/mL (15-150); Iron 44 ug/dL (37-145)
[2023-03-28 09:42] LABS: Vitamin B12 684 pg/mL (232-1245)
[2023-03-28] MEDS: pantoprazole DR 40 mg Tablet PO (09:56)
[2023-03-28] MEDS: donepezil 5 MG Tablet PO (09:56)
[2023-03-28] MEDS: heparin 5,000 unit/mL INJ 1 mL 5000 UNIT SUBCUT ×2 (09:56→22:09)
[2023-03-28 10:18] LABS: Folate Level 11.5 ng/mL (4.8-37.3)
--- NOTE | 2023-03-28 10:39 | PM.PN ---
Subjective Subjective: Patient seen this morning, she is sitting up in a chair, is at bedside, she is alert to person, to place, not to time, she has been only complaints that last night, she continued to have left elbow pain, it was difficult to sleep, I discussed with her her anemia, we will do iron studies, monitor hemoglobin, she is on heparin for DVT prophylaxis, which we might need to discontinue based on her hemoglobin trend, she denies any bloody or black stools, no bloody vomit, no hemodynamic compromise, spoke to patient's at bedside Vitals/I&O/Wt Last Vital Signs Temp 97.7 F 03/28/23 07:33 Pulse 87 03/28/23 07:33 Resp 16 03/28/23 07:33 BP 156/77 03/28/23 07:33 Pulse Ox 96 03/28/23 07:33 O2 Del Method Room Air 03/28/23 07:33 03/27/23 03/28/23 03/28/23 22:59 06:59 14:59 Intake Total 720 / 1680 240 / 240 Balance 720 / 1680 240 / 240 Physical Exam Const: COMMON NORMALS: no acute distress and patient oriented x3 Resp: COMMON NORMALS: normal respiratory effort, No retractions, No use of accessory muscles and clear to auscultation bilaterally AUSCULTATION: clear to auscultation bilaterally Cardio: COMMON NORMALS: regular rate, regular rhythm, S1 normal heart sound present and S2 normal heart sound present RATE: regular rate RHYTHM: regular rhythm HEART SOUNDS: S1 normal heart sound present and S2 normal heart sound present GI: COMMON NORMALS: Normal to inspection, nondistended, normoactive bowel sounds present and non-tender Extremity: COMMON NORMALS: no pedal edema Neuro: COMMON NORMALS: patient oriented x3 Data 03/28/23 04:11 03/28/23 04:11 A&P Assessment and plan (1) Fracture of left superior pubic ramus: Fracture of the left pubic symphysis after sustaining a mechanical fall at home today. CT of the pelvis 1.? ? Minimally displaced fracture involving the LEFT superior pubic ramus at the pubic symphysis as seen on the prior radiograph. No significant pubic symphysis widening.? 2.? Small amount of associated edema along the LEFT pubic ramus and pubic symphysis. 3.? Additional tiny nondisplaced fracture with cortical irregularity along the LEFT sacral ala. Recommend correlation for LEFT sacral pain. Orthopedic consult PT OT assessment As needed hydrocodone APAP for pain management (2) Laceration of elbow, left: Sutured in the emergency room. Approximately 8 cm laceration over the left elbow, currently wrapped, received tetanus vaccination in the ER (3) Dementia: Mentation is currently at baseline Continue home medications (4) Contusion of knee, left: no underlying fractures visualized (5) ASHLI (acute kidney injury): Creatinine 1.2, likely rhabdomyolysis Continue normal saline 75 cc an hour (6) Rhabdomyolysis: Continues to have elevated CPK continue IV fluids at 50 cc (7) Encephalopathy: Is alert person, not to place, not to time could be underlying dementia, (8) Gait disturbance: (9) Dementia: (10) Hyperlipidemia: (11) Hypertension: (12) Anemia: - Monitor hemoglobin -Hemoccult stool -Iron studies, B12, folate -Currently on heparin for DVT prophylaxis Plan Complaints of chest pain yesterday, serial EKGs, serial troponin, telemetry monitoring Plan for today monitor hemoglobin, iron studies, Hemoccult stool, Attestations Medical Necessity Statement*: Patient requires hospitalization for pubic rami fracture, anemia Diagnoses Fracture of left superior pubic ramus S32.512A Laceration of elbow, left S51.012A Dementia F03.90 Contusion of knee, left S80.02XA ASHLI (acute kidney injury) N17.9 Rhabdomyolysis M62.82 Encephalopathy G93.40 Gait disturbance R26.9 Hyperlipidemia E78.5 Hypertension I10 Anemia D64.9
[2023-03-28 12:00] VITALS: BP 146/75; PULSE 76; RESP 17; TEMP 36.8; O2SAT 96
[2023-03-28] MEDS: HYDROcodone-acetaminophen 5-325 mg Tablet 1 TAB PO ×2 (14:27→22:59)
[2023-03-28 15:09] LABS: Hematocrit 31.4 % (36-47)
[2023-03-28 16:00] VITALS: BP 145/66; PULSE 84; RESP 16; TEMP 36.8; O2SAT 96
--- NOTE | 2023-03-28 18:03 | PC.NURSE ---
PTS L ARM WOUND DRESSING WAS CHANGED, PT TOLERATED WELL.
[2023-03-28 20:00] VITALS: BP 133/68; PULSE 86; RESP 16; TEMP 36.8; O2SAT 95
[2023-03-28] MEDS: ezetimibe 10 mg Tablet PO (22:07)
[2023-03-28] MEDS: aspirin 81 mg EC Tablet PO (22:07)
[2023-03-29] VITALS: BP 138/65; PULSE 83; RESP 15; TEMP 36.6; O2SAT 98
[2023-03-29 04:00] VITALS: BP 148/67; PULSE 80; RESP 15; TEMP 36.4; O2SAT 95
[2023-03-29 05:12] LABS: Basophils # 0.1 10^3/uL (0.0-0.1); Basophils % 0.9 %; Eosinophils # 0.4 10^3/uL (0.0-0.8); Eosinophils % 5.5 %; Hematocrit 31.4 % (36-47); Lymphocytes # 1.1 10^3/uL (0.8-4.8); Lymphocytes % 16.9 %; Mean Corpuscular HGB Conc 31.5 g/dL (30-55); Mean Corpuscular Hemoglobin 30.9 pg (27-33); Mean Corpuscular Volume 98.1 fl (85-98); Mean Platelet Volume 11.4 fL (7.4-10.4); Monocytes # 0.7 10^3/uL (0.2-0.9); Monocytes % 9.9 %; Neutrophils # 4.42 10^3/uL (1.8-7.7); Neutrophils % 66.2 %; Nucleated Red Blood Cells % 0 %; Platelet Count 153 10^3/cmm (157-399); Red Cell Distribution Width 13.1 % (12.1-15.1); White Blood Count 6.68 10^3/uL (3.29-11.43)
[2023-03-29 05:28] LABS: Anion Gap 11.3 (5-19); Blood Urea Nitrogen 13 mg/dL (8-23); Calcium 9.1 mg/dL (8.5-10.5); Carbon Dioxide 26 mmol/L (22-29); Chloride 105 mmol/L (98-107); Creatine Phosphokinase 149 U/L (26-192); Glucose 106 mg/dL (65-115); Osmolality Calculated 287 mOsm/kg (285-295); Potassium 4.3 mmol/L (3.5-5.1); Sodium 138 mmol/L (136-145)
[2023-03-29 05:29] LABS: Creatinine Clr Calc Pharmacy 44.1181
[2023-03-29] MEDS: levothyroxine 50 mcg Tablet PO (06:10)
[2023-03-29] MEDS: psyllium powder Pkt 2 PACKET PO (06:11)
[2023-03-29 07:23] VITALS: BP 146/74; PULSE 85; RESP 16; O2SAT 93
[2023-03-29] MEDS: donepezil 5 MG Tablet PO (08:09)
[2023-03-29] MEDS: pantoprazole DR 40 mg Tablet PO (08:09)
[2023-03-29] MEDS: acetaminophen 325 mg Tablet 650 MG PO (10:02)
[2023-03-29] MEDS: heparin 5,000 unit/mL INJ 1 mL 5000 UNIT SUBCUT (10:18)
[2023-03-29 10:49] LABS: SARS Covid-2 Antigen negative (Negative)
[2023-03-29 11:16] VITALS: BP 131/66; PULSE 83; RESP 15; TEMP 36.9; O2SAT 95
--- NOTE | 2023-03-29 11:28 | PC.SOCIAL ---
IMM Update pg 2 of IMM copy left @ bedside. Patient is not oriented. Attempted to call patients , no answer, left message.
--- NOTE | 2023-03-29 11:31 | P.DS_ITS ---
Discharge Providers Date of Admission: 03/24/23 21:43 Date of Discharge: March 29, 2023 Attending Provider at Admission: Cecilia Ness MD Attending Provider at Discharge: Champ Cardona Primary Care Provider: JOVITA LOBO Diagnoses at Discharge Discharge Diagnosis (1) Fracture of left superior pubic ramus: Status: Acute (2) Laceration of elbow, left: Status: Acute (3) Dementia: Status: Acute (4) Contusion of knee, left: Status: Acute (5) ASHLI (acute kidney injury): Status: Acute (6) Rhabdomyolysis: Status: Acute (7) Encephalopathy: Status: Acute (8) Gait disturbance: Status: Acute (9) Hyperlipidemia: Status: Acute (10) Hypertension: Status: Acute (11) Anemia: Status: Acute Reason for Visit Reason for Visit: fall, left arm injury Hospital Course Hospital Course Pleasant 84-year-old lady with dementia, HTN, HLD, hypothyroidism was admitted after a fall at home, falling onto cement, unable to provide history as to how or why she fell, with finding of left pubic symphysis, tiny nondisplaced fracture with cortical irregularity left sacral jarod, 8 cm laceration of the left elbow treated with sutures in ER. Contusion of left knee. She was assessed by orthopedics with recommendation for rehabilitation. On presentation also with ASHLI and rhabdomyolysis, received treatment with IV fluids. Rhabdomyolysis resolved. ASHLI improving. Please follow-up. Additionally noted anemia, hemoglobin remaining stable around 9.5. Please follow-up anemia. Recheck CBC in 3 days. Initially reported encephalopathy on presentation superimposed on dementia resolved. She otherwise remains alert, lucid, cooperative, not completely oriented. Please reassess healing of laceration of left elbow. Change dressing. She is asked to follow-up with wound care for reassessment and suture removal. Elevate left upper extremity above heart level. Physical Exam Narrative: Accompanied by her . States could not sleep very well last night, many distractions here. Sitting up in a chair. Const: COMMON NORMALS: alert GENERAL APPEARANCE: cooperative ORIENTATION/CONSCIOUSNESS: Yes awake HENMT: COMMON NORMALS: oropharynx normal Neck/C-Spine: COMMON NORMALS: no JVD Resp: COMMON NORMALS: normal respiratory effort and clear to auscultation bilaterally AUSCULTATION: clear to auscultation bilaterally Cardio: COMMON NORMALS: no JVD, regular rhythm, S1 normal heart sound present, S2 normal heart sound present and No murmurs present (Cardio) RHYTHM: regular rhythm HEART SOUNDS: S1 normal heart sound present and S2 normal heart sound present GI: COMMON NORMALS: Normal to inspection, nondistended, normoactive bowel sounds present, Soft to palpation and non-tender PALPATION: Yes Soft to palpation Extremity: COMMON NORMALS: no joint enlargement and no pedal edema NARRATIVE EXTREMITY EXAM: L elbow wrapped in clean dressing. Some swelling around the left elbow. Neuro: COMMON NORMALS: moves all extremities SENSORIUM/ORIENTATION: Yes alert Skin: COMMON NORMALS: no rashes or lesions noted GENERAL SKIN EXAM: no rashes or lesions noted OTHER: Thin, fragile skin. Bruising. Discharge Data Studies Completed and Pending Completed Studies During Hospitalization Category Date Time Status CT bony pelvis 92720 Routine Cat Scan 03/25/23 05:[address] head wo con* [id number] Routine Cat Scan 03/25/23 10:20 Completed CXRP [XR chest 1V portable [id number]] Routine Exams 03/25/23 05:55 Completed XR elbow LT min 3V* [id number] Stat Exams 03/24/23 18:33 Completed XR femur LT min 2V* [id number] Stat Exams 03/24/23 18:33 Completed XR lumbar spine 1 view portable [XR lumbar spine 1V Exams 03/25/23 05:56 Completed port [id number]] Routine XR pelvis 1-2V* [id number] Stat Exams 03/24/23 18:33 Completed XR ribs BI 3V* [id number] Routine Exams 03/25/23 10:20 Completed XR shoulder LT 1V [id number] Routine Exams 03/25/23 10:20 Completed XR shoulder LT min 2V* [id number] Routine Exams 03/26/23 08:39 Completed Pending at discharge Category Date Time Status Occult Blood Stool [Immunochemical Fecal OCB] Routine Lab 03/28/23 08:43 Uncollected Radiology Impressions Elbow X-Ray 03/24/23 18:33 IMPRESSION: No fracture visualized. Femur X-Ray 03/24/23 18:33 IMPRESSION: No acute findings. Pelvis X-Ray 03/24/23 18:33 IMPRESSION: Transverse lucency in the left pubic symphysis could represent a fracture. Ribs X-Ray 03/25/23 10:20 IMPRESSION: No acute findings. Laboratory Results WBC 6.68 10^3/uL (3.29-11.43) 03/29/23 04:47 RBC 3.20 10^6/uL (3.85-5.65) L 03/29/23 04:47 Hgb 9.90 g/dL (11.27-16.99) L 03/29/23 04:47 Hct 31.4 % (36-47) L 03/29/23 04:47 MCV 98.1 fl (85-98) H 03/29/23 04:47 MCH 30.9 pg (27-33) 03/29/23 04:47 MCHC 31.5 g/dL (30-55) 03/29/23 04:47 RDW 13.1 % (12.1-15.1) 03/29/23 04:47 Plt Count 153 10^3/cmm (157-399) L 03/29/23 04:47 MPV 11.4 fL (7.4-10.4) H 03/29/23 04:47 Neut % (Auto) 66.2 % 03/29/23 04:47 Lymph % (Auto) 16.9 % 03/29/23 04:47 Perry % (Auto) 9.9 % 03/29/23 04:47 Eos % (Auto) 5.5 % 03/29/23 04:47 Baso % (Auto) 0.9 % 03/29/23 04:47 Neut # (Auto) 4.42 10^3/uL (1.8-7.7) 03/29/23 04:47 Lymph # (Auto) 1.1 10^3/uL (0.8-4.8) 03/29/23 04:47 Perry # (Auto) 0.7 10^3/uL (0.2-0.9) 03/29/23 04:47 Eos # (Auto) 0.4 10^3/uL (0.0-0.8) 03/29/23 04:47 Baso # (Auto) 0.1 10^3/uL (0.0-0.1) 03/29/23 04:47 Nucleated RBC % (auto) 0 % 03/29/23 04:47 Nucleated RBCs # 0.0 /100WBC 03/29/23 04:47 Sodium 138 mmol/L (136-145) 03/29/23 04:47 Potassium 4.3 mmol/L (3.5-5.1) 03/29/23 04:47 Chloride 105 mmol/L (98-107) 03/29/23 04:47 Carbon Dioxide 26 mmol/L (22-29) 03/29/23 04:47 Anion Gap 11.3 (5-19) 03/29/23 04:47 BUN 13 mg/dL (8-23) 03/29/23 04:47 Creatinine 1.0 mg/dL (0.5-0.9) H 03/29/23 04:47 GFR Calculation Not Reportable 03/29/23 04:47 Glucose 106 mg/dL (65-115) 03/29/23 04:47 Calculated Osmolality 287 mOsm/kg (285-295) 03/29/23 04:47 Calcium 9.1 mg/dL (8.5-10.5) 03/29/23 04:47 Iron 44 ug/dL (37-145) 03/28/23 04:11 Ferritin 214 ng/mL (15-150) H 03/28/23 04:11 Total Bilirubin 0.3 mg/dL (0.15-1.2) 03/26/23 04:13 AST 109 U/L (0-32) H 03/26/23 04:13 ALT 114 U/L (0-33) H 03/26/23 04:13 Alkaline Phosphatase 78 U/L (35-105) 03/26/23 04:13 Creatine Kinase 149 U/L (26-192) 03/29/23 04:47 Troponin T Baseline 14 ng/L (0-10) H 03/25/23 10:31 Troponin T 120 Minute 12.67 ng/L (0-10) H 03/25/23 12:32 Delta Troponin T -1.33 ABS# (0-10) L 03/25/23 12:32 Troponin T Hi Sens 6Hr 12.77 ng/L (0-10) H 03/25/23 16:32 Troponin T Hi Sens 6Hr Delta -1.23 ng/L (0-12) L 03/25/23 16:32 C-Reactive Protein 18.3 mg/L (0.0-4.9) H 03/25/23 10:31 Total Protein 5.9 g/dL (6.6-8.7) L 03/26/23 04:13 Albumin 3.6 g/dL (3.5-5.2) 03/26/23 04:13 Globulin 2.3 g/dL (1.3-4.6) 03/26/23 04:13 Vitamin B12 684 pg/mL (232-1245) 03/28/23 04:11 Folate 11.5 ng/mL (4.8-37.3) 03/28/23 04:11 Procalcitonin 0.15 ng/mL (0-0.5) 03/25/23 10:31 TSH 1.29 uIU/mL (0.27-4.20) 03/25/23 10:31 Urine Color Yellow (Yellow) 03/25/23 06:30 Urine Appearance Clear (CLEAR) 03/25/23 06:30 Urine pH 6 (5-7) 03/25/23 06:30 Ur Specific [place] 1.020 (1.005-1.030) 03/25/23 06:30 Urine Protein Neg (Negative) 03/25/23 06:30 Urine Glucose (UA) Norm (Normal) 03/25/23 06:30 Urine Ketones Negative (Negative) 03/25/23 06:30 Urine Blood Neg (Negative) 03/25/23 06:30 Urine Nitrate Negative (Negative) 03/25/23 06:30 Urine Bilirubin Neg (Negative) 03/25/23 06:30 Urine Urobilinogen Norm mg/dL (Negative) 03/25/23 06:30 Ur Leukocyte Esterase Negative (Negative) 03/25/23 06:30 SARS-CoV-2 Ag (Rapid) negative (Negative) 03/29/23 10:02 Vitals Last Vital Signs Temp 98.4 F 03/29/23 11:16 Pulse 83 03/29/23 11:16 Resp 15 03/29/23 11:16 BP 131/66 03/29/23 11:16 Pulse Ox 95 03/29/23 11:16 O2 Del Method Room Air 03/29/23 11:16 Discharge Plan Discharge Patient Disposition: Xfer SNF Condition: Stable Prescriptions: New acetaminophen 325 mg Tablet 650 mg PO Q6H PRN (Reason: Mild/Mod Pain Or Temp >/= 101) Qty: 30 0RF Continued buspirone 5 mg tablet 5 mg PO BEDTIME PRN (Reason: Anxiety) polyethylene glycol 3350 [Miralax] 17 gram Powder In Packet 8 g PO BEDTIME aspirin [Aspir-81] 81 mg Tablet,Delayed Release (Dr/Ec) 81 mg PO BEDTIME levothyroxine 50 mcg tablet 50 mcg PO QAM ezetimibe 10 mg tablet 10 mg PO BEDTIME Metamucil (sugar) Powder 2 tsp PO QAM donepezil 5 mg Tablet 5 mg PO DAILY Discontinued Bactrim DS 800-160 mg Tablet 1 tab PO Q12H Discharge Orders: Discharge Order (Routine); Ordered 03/29/23 Ordered By: Champ Cardona Referrals: [facility], provider [Other] - 4-7 days Wound Care [Provider Group] - 4-7 days (laceration L elbow) [facility] [place] [Outside] Divina Acharya MD [Physician] - 2 weeks JOVITA LOBO FNP-C [Primary Care Provider] - Discharge Diet: Cardiac Discharge Activity: As per PT/OT instructions Patient Instructions: Laceration (GEN), Pelvic Fracture (GEN), Rhabdomyolysis (GEN), Dementia (GEN), Fall Prevention (GEN) Activity Restrictions/Additional Instructions: Maintain fall precautions. Rehabilitation as per PT, OT. Follow-up with wound care regarding laceration of the left elbow which required sutures. Dressing changes with clean gauze, cover with Coban daily. Elevate left upper extremity slightly above heart level. Follow-up with orthopedics regarding pelvic fractures. Follow-up anemia. CBC in 3 days. Reassess chemistry to confirm resolution of ASHLI. Follow-up regarding dementia. Discharge Attestations Time Spent in Discharge Care*: greater than 30 min Quality Metrics Clinical Quality Measures [ No reported AMI, CVA or VTE this stay] Coding Level of Care Code 01569 Total time (in minutes) for Discharge: 45 Diagnoses Fracture of left superior pubic ramus S32.512A Laceration of elbow, left S51.012A Dementia F03.90 Contusion of knee, left S80.02XA ASHLI (acute kidney injury) N17.9 Rhabdomyolysis M62.82 Encephalopathy G93.40 Gait disturbance R26.9 Hyperlipidemia E78.5 Hypertension I10 Anemia D64.9
--- NOTE | 2023-03-29 11:57 | PC.SOCIAL ---
IMM Update pg 2 of IMM updated and reviewed w/ patients daughter Pily via telephone. Copy has been left @ bedside.
--- NOTE | 2023-03-29 12:36 | PC.NURSE ---
Called report to [facility] at 1230.
== END 2023-03-29 13:00 | disposition skilled nursing facility (03) | DRG 536 ==
LOC: ER 20:48 → MEDSURG 23:14
PROVIDERS: Family Medicine; Admitting Provider Student in an Organized Health Care Education/Training Program; Emergency Provider Emergency Medicine; PCP Registered Nurse; Visit Provider Internal Medicine
DX: S32.592A Other specified fracture of left pubis, initial encounter for closed fracture (principal); S32.10XA Unspecified fracture of sacrum, initial encounter for closed fracture; N17.9 Acute kidney failure, unspecified; M62.82 Rhabdomyolysis; W01.0XXA Fall on same level from slipping, tripping and stumbling without subsequent striking against object, initial encounter; S51.012A Laceration without foreign body of left elbow, initial encounter; S80.02XA Contusion of left knee, initial encounter; F03.90 Unspecified dementia, unspecified severity, without behavioral disturbance, psychotic disturbance, mood disturbance, and anxiety; I10 Essential (primary) hypertension; E78.5 Hyperlipidemia, unspecified; E03.9 Hypothyroidism, unspecified; D64.9 Anemia, unspecified; Z79.82 Long term (current) use of aspirin; Z75.1 Person awaiting admission to adequate facility elsewhere
CPT/HCPCS: 36415; 70450; 71045; 71110; 72020; 72170; 72192; 73020; 73030; 73080; 73552; 80048; 80053; 81003; 82550; 82607; 82728; 82746; 83540; 84145; 84443; 84484; 85014; 85018; 85025; 86140; 87426; 90471; 90715; 93005; 96372; 97110; 97161; 97165; 97530; 97535; 99285; J0696; J1644; J7030; Q0162

== ENCOUNTER → 2023-04-14 13:18 | Outpatient (BNVA) | payer OTHER, SELFPAY | PROVIDERS: PCP Registered Nurse; Visit Provider Specialist | DX: S32.592D Other specified fracture of left pubis, subsequent encounter for fracture with routine healing; S32.10XD Unspecified fracture of sacrum, subsequent encounter for fracture with routine healing; X58.XXXD Exposure to other specified factors, subsequent encounter | CPT/HCPCS: 72190; 99024 ==

== ENCOUNTER 2023-06-30 10:38 | Outpatient (CLI) | payer MEDICARE, OTHER, SELFPAY ==
--- NOTE | 2023-06-30 10:45 | MR_ITS ---
WS: [id number] EXAMINATION: MR hip RT wo con* [id number] ORDER DATE: 06/30/2023 11:00 AM COMPARISON: None. HISTORY: R HIP PAIN CONTRAST: CT pelvis 03/25/2023 and radiographs TECHNIQUE: Coronal STIR of the Pelvis. Coronal proton density, coronal T1, axial T2 fat sat, axial T1 , sagittal T2 fat sat, and sagittal T1 performed of the hip. FINDINGS: Some images are graded by motion. Mild lower lumbar curve. Bilateral sacral insufficiency fractures with edema in the RIGHT greater mary n LEFT sacral ala consistent with recent acute insufficiency fractures. This is worse on the RIGHT. Both hips are normal in appearance with mild degenerative narrowing. Normal bone marrow signal in the femoral heads and necks. Normal proximal femoral shafts. Previously described healing pubic symphysi s and bilateral inferior pubic rami nondisplaced fractures with callus formation. Sigmoid diverticulo sis. IMPRESSION: 1. Normal bone marrow signal in the RIGHT femoral head and neck. No acute hip fractures. 2. Normal LEFT hip. 3. Healing previously described minimally displaced fractures involving the pubic symphysis and bila teral inferior pubic rami with callus formation. 4. Bilateral acute RIGHT greater than LEFT sacral insufficiency fractures with edema in the RIGHT gr eater than LEFT sacral ala. Recommend correlation for sacral pain.
== END 2023-06-30 10:39 | disposition home or self-care (01) ==
LOC: RAD 10:38
PROVIDERS: PCP Physician Assistant; Visit Provider Physician Assistant
DX: S32.519D Fracture of superior rim of unspecified pubis, subsequent encounter for fracture with routine healing (principal); X58.XXXD Exposure to other specified factors, subsequent encounter; M84.48XA Pathological fracture, other site, initial encounter for fracture; M25.551 Pain in right hip
CPT/HCPCS: 73721

== ENCOUNTER 2023-10-28 15:13 | Outpatient (CLI) | payer MEDICARE, OTHER, SELFPAY ==
--- NOTE | 2023-10-28 15:19 | CT_ITS ---
WS: [id number] CT ABDOMEN AND PELVIS WITH CONTRAST HISTORY: RUQ PAIN TECHNIQUE: Imaging performed of the abdomen and pelvis with IV contrast. Single phase imaging of the abdomen. Coronal and sagittal reformats are submitted. All CT scans at [facility] use at [facility] one of these dose optimization techniques: automated exposure control; mA and/or kV adjustment per patient size (includes targeted exams where dose is matched to clinical indication); or iterative re construction. IV CONTRAST: Omnipaque 350; 100 mL IV. Oral contrast: No DLP: 340.33 mGy.cm COMPARISON: 08/23/2022 Lower thorax: Lung bases are clear. Mild cardiomegaly. Small hiatal hernia. Liver/biliary system: Normal size with no intrahepatic dilatation. Gallbladder: Prior cholecystectomy. No intrahepatic duct dilatation. Pancreas: Normal size pancreas and pancreatic duct. No adjacent inflammation. Spleen: Normal size with granulomata. Adrenal glands: Normal. Right kidney: Normal. Left kidney: Simple cyst upper pole 3.5 x 4.5 cm. No obstruction. Aorta: Mild atherosclerosis with no aneurysm. Lymphadenopathy: None. Free fluid: None. GI tract: No obstruction. No colitis. Tortuous overlapping loops of colon with constipation. Numerous diverticula in the sigmoid colon. No obstruction. No acute diverticulitis. Increased soft tissue in the cecum. Abdominal wall: Fat containing umbilical hernia. Pelvis: No free fluid or adenopathy within the pelvis. Bones: advanced degenerative changes throughout the lumbar spine. IMPRESSION: 1. No acute abdominal or pelvic abnormalities. 2. Increased soft tissue in the cecum. This may be a cluster of fecal material or intraluminal soft tissue mass. If this needs to be further evaluated, follow-up CT with IV contrast or colonoscopy woul d be beneficial. 3. Sigmoid diverticulosis without acute diverticulitis. 4. Prior cholecystectomy.
[2023-10-28] MEDS: iohexol 350 mg/mL 500 mL Btl (per mL) IV (15:47)
== END 2023-10-28 15:14 | disposition home or self-care (01) ==
LOC: RAD 15:15
PROVIDERS: PCP Physician Assistant; Visit Provider Physician Assistant
DX: R10.11 Right upper quadrant pain (principal); K57.30 Diverticulosis of large intestine without perforation or abscess without bleeding; I51.7 Cardiomegaly; K44.9 Diaphragmatic hernia without obstruction or gangrene
CPT/HCPCS: 74177; Q9967